=== PATIENT | male | born 1965 | race Caucasian/White ===

== ENCOUNTER 2017-11-25 08:20 | Inpatient (IN) | payer OTHER ==
[2017-10-28 11:38] VITALS: Ht 180.3 cm; Wt 138.1 kg
--- NOTE | 2017-10-28 12:23 | PAT Medication Instructions ---
Service Date Oct 28, 2017. Current Home Medication List Aspirin (Aspirin Ec), 81 MG PO QAM Atorvastatin (Lipitor), 40 MG PO HS Carvedilol (Coreg), 12.5 MG PO BID Citalopram Hydrobromide (Celexa), 20 MG PO QAM Diazepam (Valium), 5 MG PO BID PRN for RN Fenofibrate (Tricor), 48 MG PO HS Fish Oil ([place]-3), 2 CAP PO QAM Ibuprofen (Motrin), 600 MG PO PRN Multivitamins/Minerals (Mvi With Minerals), 1 TAB PO QAM Oxycodone Hcl (Oxycontin (Ext Rel)), 160 MG PO Q12 Psyllium (Metamucil), 1 DOSE PO QAM Ramipril (Ramipril), 1 CAP PO QAM Ranitidine (Zantac), 150 MG PO BID Medication Instructions For Your Scheduled Surgery -Contact your surgeon for instructions: Ibuprofen (Motrin), 600 MG PO PRN - Hold the following medications 2 weeks prior to surgery: Fish Oil ([place]-3), 2 CAP PO QAM - Hold the following medications the night before surgery: Fenofibrate (Tricor), 48 MG PO HS - Hold the following medications the morning of surgery: Multivitamins/Minerals (Mvi With Minerals), 1 TAB PO QAM Psyllium (Metamucil), 1 DOSE PO QAM Ramipril (Ramipril), 1 CAP PO QAM - Take the following medications the morning of surgery with a sip of water: Aspirin (Aspirin Ec), 81 MG PO QAM Carvedilol (Coreg), 12.5 MG PO BID Citalopram Hydrobromide (Celexa), 20 MG PO QAM Diazepam (Valium), 5 MG PO BID PRN for RN (if needed) Oxycodone Hcl (Oxycontin (Ext Rel)), 160 MG PO Q12 (if needed, can be taken up to four hours before surgery) Ranitidine (Zantac), 150 MG PO BID - Take the following medications as scheduled the night before surgery: Atorvastatin (Lipitor), 40 MG PO HS Carvedilol (Coreg), 12.5 MG PO BID Diazepam (Valium), 5 MG PO BID PRN for RN (if needed) Oxycodone Hcl (Oxycontin (Ext Rel)), 160 MG PO Q12 Ranitidine (Zantac), 150 MG PO BID If you have any questions please call us at [phone] or [phone] or [phone]
[2017-10-28 13:22] LABS: BASO % 0.6 %; BASO ABS # 0.03 K/uL (0-0.2); EOS % 4.5 %; EOS ABS # 0.24 K/uL (0-0.5); HEMATOCRIT 39.7 % (42-52); HEMOGLOBIN 13.9 g/dL (14.0-18.0); IG# 0.03 K/uL (0.00-0.02); LYMPH % 46.3 %; LYMPH ABS # 2.45 K/uL (1.2-3.4); MEAN CELL VOLUME 86.7 fL (80-100); MEAN CORPUSCULAR HEMOGLOBIN 30.3 pg (25-34); MEAN PLATELET VOLUME 9.2 fL (7.4-10.4); MONO % 8.3 %; MONO ABS # 0.44 K/uL (0.11-0.59); NEUT % 39.7 %; PLATELET COUNT 236 K/uL (130-400); RED CELL DISTRIBUTION WIDTH CV 12.6 % (11.5-14.5); RED CELL DISTRIBUTION WIDTH SD 40.3 fL (36.4-46.3); WHITE BLOOD COUNT 5.29 K/uL (4.8-10.8)
[2017-10-28 13:29] LABS: INR 0.9 (0.9-1.1); PTT PATIENT 24.7 SECONDS (21.0-31.0)
[2017-10-28 13:40] LABS: ALBUMIN 3.7 gm/dl (3.4-5.0); CALCIUM 9.1 mg/dl (8.5-10.1); CREATININE 1.03 mg/dl (0.60-1.40); POTASSIUM 4.6 mmol/L (3.5-5.1)
--- NOTE | 2017-11-12 11:17 | HISTORY & PHYSICAL EXAMINATION ---
DATE OF ADMISSION: 11/25/2017 CHIEF COMPLAINT: Right knee pain. HISTORY OF PRESENT ILLNESS: Mr. South is a 52-year-old male who sustained a right knee injury in 1980 playing football. The patient has had multiple surgeries on the knee over the years. He rates his pain as 6/10. He has pain with his daily activities. He has limited standing and walking tolerance. Pain is worse with weightbearing. The patient has had injections, bracing, physical therapy, and NSAIDS. He is also taking chronic narcotics with minimal relief. He has failed conservative treatment and is scheduled for right knee replacement. PAST MEDICAL HISTORY: VT age 34, asthma, chronic back pain. He denies diabetes or DVT. PAST SURGICAL HISTORY: Bilateral shoulder, left bicep, left total hip arthroplasty, hernia repair, and multiple right knee surgeries. SOCIAL HISTORY: The patient denies alcohol or tobacco use. He lives in a 2-andrew home. He lives alone. He is currently on disability. FAMILY HISTORY: Negative for DVT. MEDICATIONS: Aspirin 81 mg daily, atorvastatin 40 mg daily, Coreg 12.5 mg b.i.d., Celexa 20 mg daily, Valium 10 mg p.r.n., TriCor 48 mg daily, ibuprofen 600 mg q.i.d., multivitamin, omega 3, OxyContin 80 mg 2 tabs b.i.d., ramipril 10 mg daily, Zantac 150 mg b.i.d. ALLERGIES: DILAUDID CAUSES NAUSEA AND VOMITING. REVIEW OF SYSTEMS: See HPI. Ten other systems reviewed, all negative. PHYSICAL EXAMINATION: VITAL SIGNS: Height 5 foot 11 inches, weight 284 pounds, BMI 40. GENERAL: This is a well-developed, well-nourished male who is alert and oriented x3. Mood and affect are appropriate. HEENT: Normocephalic, atraumatic. Mucous membranes are moist and intact. NECK: Supple without lymphadenopathy. HEART: Regular rate and rhythm without murmurs, rubs, or gallops. LUNGS: Clear to auscultation without wheezes or rhonchi. ABDOMEN: Soft and nontender. Bowel sounds are equal and active. EXTREMITIES: No ecchymosis, redness, or warmth. He has multiple scars. He has moderate effusion, moderate distal edema. He has varus deformity. Range of motion is from 3-100 degrees with no laxity. He is neurovascularly intact with +5/5 strength. X-RAY EXAMINATION: AP and lateral views show joint space narrowing and osteophyte formation. IMPRESSION: Degenerative joint disease, posttraumatic right knee. PLAN: The patient will be admitted for a right TKA with removal of hardware. He is planning on a short stay at [facility] upon discharge since he lives alone. The patient is under narcotic contract with his PCP due to his high doses of chronic pain medication, pain management consult may be considered as an inpatient. The patient may also need to consider cardiac clearance preoperatively.
[~2017-11-25] VITALS: Ht 180.3 cm; Wt 138.1 kg
[2017-11-25] MEDS: TRANEXAMIC ACID INJ 1,000 MG x 2 Bags IV SCH ×4 (06:30→10:11)
[~2017-11-25 08:20] MED LIST: ACETAMINOPHEN 500 MG TAB PO SCH; ASPI81TA28 PO; ATOR-24 PO; BUPIVACAINE 0.5 % 5 MG/1 ML PF 10ML VIAL ONE; CARV12.52 PO; CEFAZOLIN 3000MG IV PUSH 22.5 ML IV SCH; CITA20TA9 PO; CeleBREX 200 MG CAP PO SCH; DEXAMETHASONE 4 MG TAB PO SCH; DIAZ-165 PO; FAMOTIDINE 20 MG TAB PO SCH; FENO48TA9 PO; GABAPENTIN 900 MG PO SCH; IBUP600T44 PO; LACTATED RINGER'S 1000ML 1,000 ML IV SCH; METOCLOPRAMIDE HCL 10 MG TAB PO SCH; MULT-513 PO; OMEG10007 PO; OXYC80TA16 PO; PSYL48.59 PO; RAMI10CA PO; RANI150T85 PO; ROPIVACAINE 5MG/ML 30 ML 150 MG, BUPIVACAINE 0.5% MPF INJ 30 ML, EpINEphrine HCL INJ 0.... INFIL SCH
[2017-11-25] MEDS ORDERED: FENTANYL CITRATE INJ 50 MCG/1 ML 2 ML VIAL IV PRN (08:30)
[2017-11-25] MEDS ORDERED: ONDANSETRON INJ 2 MG/ML 2 ML VIAL IV PRN ×3 (08:30→13:30)
[2017-11-25] MEDS ORDERED: ATROPINE SULFATE 0.1 MG/ML 5ML SYR IV PRN (08:30)
[2017-11-25] MEDS ORDERED: EpHEDrine SULFATE INJ 50 MG/ML AMP IV PRN ×2 (08:30→13:30)
--- NOTE | 2017-11-25 08:48 | History & Physical Bridge Note ---
H&P Re-Evaluation Bridge Note: I have examined the patient, reviewed the History & Physical and in the interval since the performance of the History & Physical I have noted the following changes of clinical significance: No changes noted
[2017-11-25] MEDS ORDERED: MOMLX (09:18)
[2017-11-25] MEDS ORDERED: FENTANYL CITRATE INJ 50 MCG/1 ML 2 ML VIAL ONE (09:28)
[2017-11-25] MEDS ORDERED: PROPOFOL IV EMULSION 10 MG/ML 20 ML VIAL IV ONE ×5 (09:28→12:42)
[2017-11-25] MEDS ORDERED: LIDOCAINE HCL 2% 2 ML VIAL (20MG/ML) ONE (09:28)
[2017-11-25] MEDS ORDERED: MIDAZOLAM HCL 1 MG/ML 2ML VIAL ONE (09:28)
[2017-11-25 09:29] VITALS: BP 130/70; PULSE 61; TEMP 37.1; O2SAT 94
[2017-11-25] MEDS ORDERED: ORTHO JOINT ANESTHETIC ONE (10:12)
[2017-11-25] MEDS ORDERED: POVIDONE-IODINE OP SOLN 30 ML BTL ONE (10:12)
[2017-11-25] MEDS ORDERED: BACITRACIN 50000 UNIT VIAL ONE (10:12)
[2017-11-25] MEDS ORDERED: ONDANSETRON INJ 2 MG/ML 2 ML VIAL ONE (11:04)
--- NOTE | 2017-11-25 12:19 | [facility] Post Operative Brief Note ---
Immediate Operative Summary Operative Date Nov 25, 2017. Pre-Operative Diagnosis Degenerative Joint Disease Right Knee; Retained Hardware Right Knee Post-Operative Diagnosis Degenerative Joint Disease Right Knee; Retained Hardware Right Knee Procedure(s) Performed Right Total Knee Arthroplasty Constrained with Removal of Hardware Right Knee Surgeon Dr. Juarez Firmware Software Verification Engineer Surgeon(s) VITALIY Gómez Estimated Blood Loss 10cc Findings Consistent with Post-Op Diagnosis Specimens A. Right Knee Bone and Tissue B. Removed Hardware Right Knee (plate x1, screws x5) Anesthesia Type MAC Spinal Regional Complication(s) none Disposition Accompanied Pt To Recover: no Disposition: Recovery Room / PACU
--- NOTE | 2017-11-25 13:23 | OPERATIVE REPORT ---
DATE OF OPERATION: 11/25/2017 PREOPERATIVE DIAGNOSIS: Degenerative joint disease, right knee, status post high tibial osteotomy. POSTOPERATIVE DIAGNOSIS: Degenerative joint disease, right knee, status post high tibial osteotomy. PROCEDURE: Removal of previous plate and screws and conversion to posterior stabilized total knee replacement. SURGEON: Jaime Juarez MD ASP NET PROGRAMMER: VITALIY Gómez ANESTHESIA: Spinal. COMPLICATIONS: None. DESCRIPTION OF PROCEDURE: Following induction of spinal anesthesia, the patient's right leg was prepped and draped in usual sterile manner. The limb was exsanguinated with an Esmarch bandage and tourniquet was inflated to 350 mmHg. Longitudinal incision was opened, subcutaneous tissue was sharply dissected and a trocar was used for hemostasis. A median parapatellar incision was made, and following this dissection, the subcutaneous layer was carried laterally to expose the area of the plate. Scar over the plate was opened using first a Bovie and then a Ashraf elevator, and the large fragment screwdriver was removed all screws. The plate was dislodged with a Ashraf elevator and was removed easily. Next, attention was turned to the knee replacement where fat pad was removed to aid in exposure. The medial face of the tibia was cleared of soft tissue using electrocautery and Ashraf elevator. The significant offset of the medial tibial was noted from the previous high tibial osteotomy. First, the cut was made taking minimum of bone that could be obtained medially, but removing all degenerative arthritis. Following this, attention was turned to the femur where the drill was used to gain access to the femoral canal. Intramedullary guide was placed and the distal femur was cut using the distal femoral cutting guide. A size 6 femoral component was chosen the size to be used, and the guide for the chamfer cuts and anterior and posterior cuts were made. The notch was prepared and all remaining soft tissue was removed from the posterior aspect of the knee using electrocautery. The tibia was then subluxed anteriorly where additional clean up cuts were made using the saw and these bone fragments were all removed. Intramedullary access was gained using the drill over the tibial canal. This was clearly offset quite a bit laterally on the face of the tibia due to the previous high tibial osteotomy. Sequential reamings were carried up to a size 13, it was chosen as the size to be used. A size 6 baseplate was placed with a lateral offset noted. The preparations for the tibial stem were made and the trial tibia was built. A trial reduction was carried out using the trial components with an 11 poly. Following this, the patella was reamed and a size 39 patella was chosen as the size to use, this tracked well. Excess bone medial to the tibial base plate was removed using a rongeur. This did not destabilize the medial collateral ligament. All trial components were removed. The joint mix was injected. The pulsatile irrigation was used to thoroughly cleanse the knee. The final components were prepared on the back table and the final components were cemented into position. Excess cement was removed. The wound was irrigated, soaked with the Betadine soak and closed over a Hemovac drain. The wound was irrigated once again and closed using #1 Vicryl, 0 Dexon and sandra. Sterile dressing of Adaptic, 4 x 4's, ABDs, sterile Webril and double length Ian was applied. The patient tolerated the procedure well. I attest to the content of the Intraoperative Record and any orders documented therein. Any exception s are noted below.
[2017-11-25] MEDS ORDERED: SODIUM CHLORIDE 0.9% 1000ML 1,000 ML IV PRN (13:28)
[2017-11-25] MEDS ORDERED: LACTATED RINGER'S 1000ML 500 ML IV PRN (13:28)
[2017-11-25] MEDS ORDERED: FENTANYL 2.5MCG/ML BUPIV 0.0625% 100ML BAG EPI PRN (13:30)
[2017-11-25] MEDS ORDERED: NALOXONE HCL INJ 0.4 MG/1 ML VIAL/CARP IV PRN (13:30)
[2017-11-25] MEDS ORDERED: MEPERIDINE HCL 25 MG/ML CARP IV PRN (13:30)
[2017-11-25] MEDS ORDERED: BISACODYL 10 MG SUPP PR PRN (13:30)
[2017-11-25] MEDS ORDERED: MAGNESIUM HYDROXIDE SUSP 30 ML UDC PO PRN (13:30)
[2017-11-25] MEDS ORDERED: ALUMINUM/MAGNESIUM/SIMETH (MAALOX MAX) 30 ML UDC PO PRN (13:30)
[2017-11-25] MEDS ORDERED: MoRPHine SULFATE 2 MG/ML CARP IV PRN (13:30)
[2017-11-25] MEDS ORDERED: DiphenhydrAMINE HCL 50 MG/ML VIAL IV PRN (13:30)
[2017-11-25] MEDS ORDERED: NALBUPHINE HCL INJ 10 MG/ML AMP IV PRN (13:30)
--- NOTE | 2017-11-25 13:38 | Anesthesiology Progress Note ---
Anesthesia Post Op Note Date & Time Nov 25, 2017 at 13:36 Vital Signs Pain Intensity: 0 Vital Signs Past 12 Hours Date Time Temp Pulse Resp B/P (MAP) Pulse Ox O2 Delivery O2 Flow Rate FiO2 11/25/17 09:29 37.1 61 18 130/70 94 Room Air Notes Mental Status: alert / awake / arousable, participated in evaluation Pt Amnestic to Procedure: Yes Nausea / Vomiting: adequately controlled Pain: adequately controlled Airway Patency, RR, SpO2: stable & adequate BP & HR: stable & adequate Hydration State: stable & adequate Neuraxial Anesthesia: was administered, sensory block is resolving Anesthetic Complications: no major complications apparent Pt was administered a test dose of lidocaine 1.5% with epi 1:200K, 3mL to his epidural. The patient denied perioral numbness, tinnitus, or spinal block after administration. I told the PACU nurse that the patient could start his epidural infusion. The pt's vital signs remained stable. The patient was stable for discharge to telemetry.
--- NOTE | 2017-11-25 14:18 | DIAGNOSTIC IMAGING REPORT ---
R KNEE 2 VIEWS ROUTINE CLINICAL HISTORY: Total knee arthroplasty. Hardware. COMPARISON: None. DISCUSSION: 2 views reveal a total right knee arthroplasty and patellar resurfacing. There is a long stem tibial prosthesis. There are overlying skin sandra and surgical drains present. There is an overlying plaster cast. IMPRESSION: Casted total right knee arthroplasty. Electronically signed by: Bony Nagy M.D. 11/25/2017 2:17 PM Dictated Date/Time: 11/25/2017 2:16 PM
[2017-11-25 14:54] VITALS: BP 127/59; PULSE 53; TEMP 37; O2SAT 99
--- NOTE | 2017-11-25 15:08 | Medical Consult ---
Consultation Date of Consultation: Nov 25, 2017. Attending Physician: Jaime Juarez M.D. Reason for Consultation: Medical management History of Present Illness This is a 52 yo M with PMHx of HTN, HLD, hypertriglyceridemia, GERD, myocardial infarction at age 34, remote smoking hisotry chronic lower back pain and obesity who presents for an elective R total knee replacement by Dr Juarez on . The patient notes he has had 5 different knee surgeries on the same knee. Pt was seen and evaluated in the PACU. Pt reports no pain in the knee and that he is slightly numb in his toes. He is able to move toes, ankle and foot during exam. He denies any other acute complaints. Pt is from home and lives with his 80 yo mother. He anticipates outpatient rehab upon discharge. Past Medical/Surgical History Medical Problems: (1) Chronic low back pain (2) GERD (gastroesophageal reflux disease) (3) HLD (hyperlipidemia) (4) HTN (hypertension) (5) Hx of myocardial infarction (6) Hypertriglyceridemia (7) Right knee DJD Surgical Problems: (1) History of hernia repair (2) History of left knee surgery (3) History of total left hip arthroplasty (4) Hx of repair of left rotator cuff (5) Hx of shoulder surgery Family History FH: HTN (hypertension) FH: breast cancer FH: diabetes mellitus FH: heart disease FH: lung cancer Medical Problems: (1) Chronic low back pain (2) GERD (gastroesophageal reflux disease) (3) HLD (hyperlipidemia) (4) HTN (hypertension) (5) Hx of myocardial infarction (6) Hypertriglyceridemia (7) Right knee DJD Surgical Problems: (1) History of hernia repair (2) History of left knee surgery (3) History of total left hip arthroplasty (4) Hx of repair of left rotator cuff (5) Hx of shoulder surgery Social History Smoking Status: Former Smoker Alcohol Use: none Drug Use: none Marital Status: single Housing Status: lives with family Allergies Coded Allergies: No Known Allergies (Verified , NKDA, 11/25/17) Current Inpatient Medications Current Inpatient Medications Medications (Trade) Dose Ordered Sig/[place] Route Start Time Stop Time Status Last Admin Dose Admin Lactated Ringer's 1,000 ml @ 15 mls/hr Q24H IV 11/25/17 06:00 11/26/17 05:59 11/25/17 09:51 15 MLS/HR Fentanyl/ Bupivacaine HCl (Fentanyl 2.5MCG/ Ml/Bupivacaine 0.0625%) 100 ml PRN PRN EPI 11/25/17 13:30 12/09/17 13:29 Naloxone HCl (Narcan Inj) 0.1 mg Q5M PRN IV 11/25/17 13:30 12/25/17 13:29 Lactated Ringer's 500 ml @ 999 mls/hr Q31M PRN IV 11/25/17 13:28 12/25/17 13:27 Ephedrine Sulfate (EpHEDrine SULFATE INJ) 10 mg Q5M PRN IV 11/25/17 13:30 Diphenhydramine HCl (Benadryl Inj) 25 mg Q6H PRN IV 11/25/17 13:30 12/25/17 13:29 Nalbuphine HCl (Nubain Inj) 5 mg Q15M PRN IV 11/25/17 13:30 12/25/17 13:29 Ondansetron HCl (Zofran Inj) 4 mg Q6H PRN IV 11/25/17 13:30 12/25/17 13:29 Meperidine HCl (Demerol Inj) 25 mg Q15M PRN IV 11/25/17 13:30 12/09/17 13:29 Miscellaneous Information (No Narcotics Or Sedatives) 1 ea QS N/A 11/25/17 16:00 12/25/17 15:59 Morphine Sulfate (MoRPHine SULFATE INJ) 2 mg Q2H PRN IV 11/25/17 13:30 12/09/17 13:29 Sodium Chloride 1,000 ml @ 15 mls/hr Q24H PRN IV 11/25/17 13:28 12/25/17 13:27 Atorvastatin Calcium (Lipitor Tab) 40 mg HS PO 11/25/17 21:00 12/25/17 20:59 UNV Carvedilol (Coreg Tab) 12.5 mg BID PO 11/25/17 21:00 12/25/17 20:59 UNV Citalopram Hydrobromide (celeXA TAB) 20 mg QAM PO 11/26/17 09:00 12/26/17 08:59 UNV Ranitidine HCl (zANTac TAB) 150 mg BID PO 11/25/17 21:00 12/25/17 20:59 UNV Non-Formulary Medication (Ramipril ) 1 cap QAM PO 11/26/17 09:00 12/26/17 08:59 UNV Morphine Sulfate (MoRPHine SULFATE INJ) PAIN SCALE 0-3 2MG ... Q4HWA PRN IV 11/25/17 13:30 12/09/17 13:29 UNV Potassium Chloride/Dextrose/ Sod Cl 1,000 ml @ 100 mls/hr Q10H IV 11/25/17 13:23 11/26/17 13:22 UNV Cefazolin Sodium 2000 mg/Dextrose 65 ml @ 100 mls/hr Q8H IV 11/25/17 13:30 11/25/17 22:08 UNV Celecoxib (CeleBREX CAP) 200 mg BID PO 11/25/17 21:00 12/25/17 20:59 UNV Oxycodone HCl (Oxycontin Tab) 120 mg Q12 PO 11/25/17 21:00 12/09/17 20:59 UNV Acetaminophen (Tylenol Tab) 1,000 mg Q8H PO 11/25/17 13:30 12/25/17 13:29 UNV Magnesium Hydroxide (Milk Of Magnesia Susp) 30 ml Q6H PRN PO 11/25/17 13:30 12/25/17 13:29 Bisacodyl (Dulcolax Supp) 10 mg DAILY PRN [place] 11/25/17 13:30 12/25/17 13:29 Senna (Senokot Tab) 17.2 mg HS PO 11/25/17 21:00 12/25/17 20:59 UNV Docusate Sodium (coLACE CAP) 100 mg BID PO 11/25/17 21:00 12/25/17 20:59 UNV Al Hydrox/Mg Hydrox/Simethicone (Maalox Max Susp) 15 ml Q4H PRN PO 11/25/17 13:30 12/25/17 13:29 Multivitamins (Multivitamin Tab) 1 tab QAM PO 11/26/17 09:00 12/26/17 08:59 UNV Ondansetron HCl (Zofran Inj) 4 mg Q6H PRN IV 11/25/17 13:30 12/25/17 13:29 Ferrous Gluconate (Ferrous Gluconate Tab) 324 mg TIDM PO 11/25/17 18:00 12/25/17 17:59 UNV Aspirin (Ecotrin Tab) 81 mg BID PO 11/25/17 21:00 12/25/17 20:59 UNV Review of Systems Constitutional: No fever, sweats or chills Eyes: No diplopia, no worsening or blurred vision ENT: normal hearing, no trouble swallowing Respiratory: No cough, sputum, dyspnea at rest or on exertion Cardiovascular: No chest pain, tightness or palpitations Abdomen: No pain, nausea, vomiting, diarrhea or constipation Musculoskeletal: No joint pain, calf pain, swelling Neurologic: No weakness, numbness/tingling, or balance problems Psychiatric: No anxiety or depression Skin: No rash or itch Physical Exam Date Time Temp Pulse Resp B/P (MAP) Pulse Ox O2 Delivery O2 Flow Rate FiO2 11/25/17 14:15 36.0 52 16 105/67 98 Nasal Cannula 3 11/25/17 14:00 57 16 123/68 98 Nasal Cannula 3 11/25/17 13:50 53 13 107/75 98 Nasal Cannula 3 11/25/17 13:40 54 14 118/67 99 Nasal Cannula 3 11/25/17 13:30 51 14 113/71 99 Oxymask 3 11/25/17 13:23 36.0 52 14 130/79 98 Oxymask 5 11/25/17 09:29 37.1 61 18 130/70 94 Room Air General: awake, alert, no apparent distress Head: Normocephalic, atraumatic ENT: PERRL, EOMI, no pharyngeal exudate, mucous membranes moist Chest: Clear to auscultation, on room air, no adventitious breath sounds Cardiac: Regular rate and rhythm, no murmur, no JVD, normal peripheral pulses, good capillary refill Abdominal: NABS x 4 quadrants, soft, nontender to palpation, no rebound, guarding or tenderness Extremities: RLE wrapped in ADIS, hemovac drain in place, ice pack, Normal inspection, no peripheral edema or erythema, calfs nontender to palpation Psych: Normal mood and affect Neuro: AAO x 3, strength diminished in the RLE currently, decreased sensation to light touch distally in RLE. Otherwise no motor deficits, speech is clear, no peripheral sensory deficits Assessment & Plan This is a 52 yo M with PMHx of HTN, HLD, hypertriglyceridemia, GERD, myocardial infarction at age 34, remote smoking history chronic lower back pain and obesity who presents for an elective R total knee replacement by Dr Juarez on . The patient notes he has had 5 different knee surgeries on the same knee. s/p R TKA - Pain management, bowel regimen and DVT ppx with asa 81 mg BID per primary team - PT/OT evals HTN HLD Hypertriglyceridemia Hx ND Remote tobacco use hx - Continue coreg 12.5 mg bid, vasotec 40 mg, statin, tricor Chronic lower back pain - Oxy ER 120 mg Q12 as outpatient, and valium 5 mg BID prn (usually taken at night before sleep only) GERD - ppi Pre-diabetes - Hgb A1C = 6.0, will need to encourage diet and exercise prior to discharge, follow glucose while admitted DVT ppx: teds, scds, asa 81 mg BID as above CODE STATUS: FULL code Disposition: From home, lives with mother, CM to assist with dc planning. Thank you for involving us in the consultation of Mr. South, medicine will follow along. Please do not hesitate to call with questions or concerns. ====== I personally interviewed and examined the patient. I agree with history of present illness and physical exam mentioned above, I also performed my own history taking and examination. Past medical history and review of system has been obtained by myself I reviewed all pertinent labs and studies Reviewed current medications I discussed and formulated of the assessment and plan mentioned above. Please refer to the Summary mentioned below. 52-year-old man with past medical history of dyslipidemia, hypertension, GERD, coronary artery disease status post ND 20 years ago, obesity and osteoarthritis presented to the hospital for elective right total knee arthroplasty, procedure went uneventful, patient will be monitored overnight for any event. General Appearance: not in acute distress Eyes: normal Sclerae, extraocular muscle intact ENT: hearing grossly normal Neck: supple Respiratory/Chest: normal air entry bilateral ,no respiratory distress, no accessory muscle use Cardiovascular: regular rate, rhythm, no murmur Abdomen: non tender, soft, no masses Extremities: no edema musculoskeletal: no significant swelling or inflammation in any joint, right knee is wrapped patient is wiggling his toes sensation intact on his right knee. Neurologic/Psychiatric: Awake alert oriented times place and person moves all extremities sensation intact cranial nerves II-12 appear to be intact Skin: normal color, warm/dry, no rash Autumn Higgins MD, [facility]
[2017-11-25] MEDS: D5W AND 1/2NSS + 20MEQ KCL 1,000 ML IV SCH (15:49)
[2017-11-25] MEDS: NO NARCOTICS OR SEDATIVES SCH (16:00)
[2017-11-25 17:05] VITALS: BP 129/69; PULSE 71; TEMP 37.3; O2SAT 94
[2017-11-25] MEDS: CEFAZOLIN IV 2,000 MG in SYRINGE 0 ML IV SCH (18:53)
[2017-11-25] MEDS: FERROUS GLUCONATE 324 MG TAB PO SCH (18:54)
[2017-11-25 19:10] VITALS: BP 121/70; PULSE 64; TEMP 36.8; O2SAT 92
[2017-11-25] MEDS ORDERED: OXYCODONE HCL 40 MG TABCR (OXYCONTIN) PO SCH (21:00)
[2017-11-25] MEDS: OXYCODONE HCL 40 MG TABCR (OXYCONTIN) PO SCH (21:39)
[2017-11-25] MEDS: CeleBREX 200 MG CAP PO SCH (21:40)
[2017-11-25] MEDS: DOCUSATE SODIUM 100 MG CAP PO SCH (21:41)
[2017-11-25] MEDS: CARVEDILOL 12.5 MG TAB PO SCH (21:41)
[2017-11-25] MEDS: ATORVASTATIN 20 MG TAB PO SCH (21:41)
[2017-11-25] MEDS: ASPIRIN 81 MG ECTAB PO SCH (21:41)
[2017-11-25] MEDS: RANITIDINE HCL 150 MG TAB PO SCH (21:42)
[2017-11-25] MEDS: SENNA 8.6 MG TAB PO SCH (21:42)
[2017-11-25] MEDS: ACETAMINOPHEN 500 MG TAB PO SCH (21:43)
[2017-11-25 23:30] VITALS: BP 117/67; PULSE 67; TEMP 37.3; O2SAT 94
[2017-11-26] MEDS: D5W AND 1/2NSS + 20MEQ KCL 1,000 ML IV SCH ×2 (00:54→11:30)
[2017-11-26] MEDS: RANITIDINE HCL 150 MG TAB PO SCH ×2 (00:56→19:52)
[2017-11-26 04:00] VITALS: BP 136/64; PULSE 58; TEMP 37; O2SAT 94
[2017-11-26] MEDS: CEFAZOLIN IV 2,000 MG in SYRINGE 0 ML IV SCH (04:05)
[2017-11-26] MEDS: ACETAMINOPHEN 500 MG TAB PO SCH ×3 (06:13→22:17)
[2017-11-26 07:00] LABS: HEMATOCRIT 31.7 % (42-52); HEMOGLOBIN 10.8 g/dL (14.0-18.0); MEAN CELL VOLUME 86.8 fL (80-100); MEAN CORPUSCULAR HEMOGLOBIN 29.6 pg (25-34); MEAN CORPUSCULAR HGB CONC 34.1 g/dl (32-36); MEAN PLATELET VOLUME 9.2 fL (7.4-10.4); PLATELET COUNT 210 K/uL (130-400); RED CELL DISTRIBUTION WIDTH CV 13.1 % (11.5-14.5); RED CELL DISTRIBUTION WIDTH SD 42.3 fL (36.4-46.3); WHITE BLOOD COUNT 14.46 K/uL (4.8-10.8)
[2017-11-26 07:23] LABS: CALCIUM 8.2 mg/dl (8.5-10.1); CREATININE 0.99 mg/dl (0.60-1.40); POTASSIUM 4.5 mmol/L (3.5-5.1)
--- NOTE | 2017-11-26 07:27 | Anesthesiology Progress Note ---
Anesthesia Post Op Note Date & Time Nov 26, 2017 at 07:26 Vital Signs Pain Intensity: 6.0 Vital Signs Past 12 Hours Date Time Temp Pulse Resp B/P (MAP) Pulse Ox O2 Delivery O2 Flow Rate FiO2 11/26/17 04:00 Room Air 11/26/17 04:00 37.0 58 20 136/64 (88) 94 Room Air 11/26/17 00:00 Room Air 11/25/17 23:30 37.3 67 22 117/67 (84) 94 Room Air 11/25/17 20:00 Room Air Notes Mental Status: alert / awake / arousable, participated in evaluation Pt Amnestic to Procedure: Yes Nausea / Vomiting: adequately controlled Pain: adequately controlled Airway Patency, RR, SpO2: stable & adequate BP & HR: stable & adequate Hydration State: stable & adequate Neuraxial Anesthesia: was administered, sensory block resolved Anesthetic Complications: no major complications apparent
[2017-11-26 07:50] VITALS: BP 125/72; PULSE 50; TEMP 36.8; O2SAT 93
--- NOTE | 2017-11-26 07:57 | Orthopedic Progress Note ---
Orthopedic Progress Note Date of Service Nov 26, 2017. Subjective Post OP Day: 1 Reports: feeling well Objective N/V intact, dressing C/D/I (Pt with plaster splint in place), toes mobile Date Time Temp Pulse Resp B/P (MAP) Pulse Ox O2 Delivery O2 Flow Rate FiO2 11/26/17 04:00 Room Air 11/26/17 04:00 37.0 58 20 136/64 (88) 94 Room Air 11/26/17 00:00 Room Air 11/25/17 23:30 37.3 67 22 117/67 (84) 94 Room Air 11/25/17 20:00 Room Air 11/25/17 19:10 36.8 64 18 121/70 (87) 92 Room Air 11/25/17 17:05 37.3 71 18 129/69 (89) 94 Room Air 11/25/17 14:54 37.0 53 20 127/59 (81) 99 Room Air 2.0 11/25/17 14:15 36.0 52 16 105/67 98 Nasal Cannula 3 11/25/17 14:00 57 16 123/68 98 Nasal Cannula 3 11/25/17 13:50 53 13 107/75 98 Nasal Cannula 3 11/25/17 13:40 54 14 118/67 99 Nasal Cannula 3 11/25/17 13:30 51 14 113/71 99 Oxymask 3 11/25/17 13:23 36.0 52 14 130/79 98 Oxymask 5 11/25/17 09:29 37.1 61 18 130/70 94 Room Air Laboratory Results 24 Hours: Test 11/26/17 06:33 Hematocrit 31.7 % Hemoglobin 10.8 g/dL Assessment & Plan Assessment: 52 yo male stable POD #1 s/p right TKA, splint in place/no ROM of knee due to difficult closure, pt with chronic pain issues Plan: 1. Med management- likely continue epidural until tomorrow, transfer to ortho floor when stable 2. DVT prophylaxis- ASA, SCDs 3. PT/OT- gait training, no knee ROM at this time 4. D/C planning- pt interested in [facility]
[2017-11-26] MEDS: NO NARCOTICS OR SEDATIVES SCH ×3 (08:37→16:16)
[2017-11-26] MEDS: FERROUS GLUCONATE 324 MG TAB PO SCH ×3 (08:37→17:05)
[2017-11-26] MEDS: CeleBREX 200 MG CAP PO SCH ×2 (08:38→19:54)
[2017-11-26] MEDS: ASPIRIN 81 MG ECTAB PO SCH ×2 (08:38→19:54)
[2017-11-26] MEDS: DOCUSATE SODIUM 100 MG CAP PO SCH ×2 (08:38→19:53)
[2017-11-26] MEDS: CITALOPRAM 20 MG TAB PO SCH (08:38)
[2017-11-26] MEDS: CARVEDILOL 12.5 MG TAB PO SCH ×2 (08:38→19:55)
[2017-11-26] MEDS: MULTIVITAMIN TAB PO SCH (08:39)
[2017-11-26] MEDS: OXYCODONE HCL 40 MG TABCR (OXYCONTIN) PO SCH ×2 (08:45→22:17)
[2017-11-26] MEDS: ENALAPRIL MALEATE 10 MG TAB PO SCH (08:45)
--- NOTE | 2017-11-26 09:43 | Pain Management Consultation ---
Pain Management Consultation Date of Consultation Nov 26, 2017. Reason for Consultation Stanislaw South is a 52-year-old male who is admitted to [facility] after undergoing right total knee arthroplasty yesterday for severe degenerative joint disease and chronic posttraumatic knee pain. Consultation was requested for pain management as he has a long-standing history of chronic opioid use. Pain is currently located in anterior and superior aspect of his right knee arthroplasty site and does not radiate. Symptoms are characterized as throbbing sensation which sharp shooting pain with adduction of the knee. Symptoms have been present for since after the surgery. Symptoms are rated as 4/10 on visual analog scale when severe and 1/10 when minimal. Current treatments for acute postop pain management include epidural bupivacaine /fentanyl infusion and OxyContin 120 mg twice daily. As an outpatient, he was on OxyContin 180 mg p.o. twice daily as well diazepam 5 mg twice daily for anxiety. He has been on chronic opiate therapy since 1980 when he sustained a traumatic brain injury and underwent multiple surgical interventions. Reports being on OxyContin at current dose for approximately 2 years duration. He does report undergoing withdrawal symptoms when he "ran out" of his medications in the past. He has comorbid medical conditions including sleep apnea and a BMI of 41.2 kg/m . He also reports having history of anxiety and depression. Denies use of alcohol, DUI, any legal issues, any financial stressors but does report significant social stressors with regards to providing care for his family members with disabilities. He reports that he is under "a lot of stress" lately as result. He also reports chronic low back pain as well as "pain all over" and suggest that despite his knee surgery, he will still need to continue on "some dose" of the opioid postoperatively. Reports no neurological symptoms associated with the symptoms. Past Medical/Surgical History (1) HTN (hypertension) (2) HLD (hyperlipidemia) (3) Hypertriglyceridemia (4) GERD (gastroesophageal reflux disease) (5) Hx of myocardial infarction (6) History of total left hip arthroplasty (7) Hx of repair of left rotator cuff (8) Hx of shoulder surgery (9) History of left knee surgery (10) History of hernia repair Family History FH: HTN (hypertension) FH: breast cancer FH: diabetes mellitus FH: heart disease FH: lung cancer Social / Work History Alcohol Use: none Drug Use: none Marital Status: single Allergies Coded Allergies: No Known Allergies (Verified , NKDA, 11/25/17) Medications Current Inpatient Medications Medications (Trade) Dose Ordered Sig/[place] Route Start Time Stop Time Status Last Admin Dose Admin Fentanyl/ Bupivacaine HCl (Fentanyl 2.5MCG/ Ml/Bupivacaine 0.0625%) 100 ml PRN PRN EPI 11/25/17 13:30 12/09/17 13:29 11/26/17 03:07 100 ML Naloxone HCl (Narcan Inj) 0.1 mg Q5M PRN IV 11/25/17 13:30 12/25/17 13:29 Lactated Ringer's 500 ml @ 999 mls/hr Q31M PRN IV 11/25/17 13:28 12/25/17 13:27 Ephedrine Sulfate (EpHEDrine SULFATE INJ) 10 mg Q5M PRN IV 11/25/17 13:30 Diphenhydramine HCl (Benadryl Inj) 25 mg Q6H PRN IV 11/25/17 13:30 12/25/17 13:29 Nalbuphine HCl (Nubain Inj) 5 mg Q15M PRN IV 11/25/17 13:30 12/25/17 13:29 Ondansetron HCl (Zofran Inj) 4 mg Q6H PRN IV 11/25/17 13:30 12/25/17 13:29 11/25/17 22:40 4 MG Meperidine HCl (Demerol Inj) 25 mg Q15M PRN IV 11/25/17 13:30 12/09/17 13:29 Miscellaneous Information (No Narcotics Or Sedatives) 1 ea QS N/A 11/25/17 16:00 12/25/17 15:59 11/26/17 00:00 1 EA Morphine Sulfate (MoRPHine SULFATE INJ) 2 mg Q2H PRN IV 11/25/17 13:30 12/09/17 13:29 Sodium Chloride 1,000 ml @ 15 mls/hr Q24H PRN IV 11/25/17 13:28 12/25/17 13:27 Atorvastatin Calcium (Lipitor Tab) 40 mg HS PO 11/25/17 21:00 12/25/17 20:59 11/25/17 21:41 40 MG Carvedilol (Coreg Tab) 12.5 mg BID PO 11/25/17 21:00 12/25/17 20:59 11/25/17 21:41 12.5 MG Citalopram Hydrobromide (celeXA TAB) 20 mg QAM PO 11/26/17 09:00 12/26/17 08:59 Ranitidine HCl (zANTac TAB) 150 mg BID PO 11/25/17 21:00 12/25/17 20:59 11/26/17 00:56 150 MG Enalapril Maleate (Vasotec Tab) 40 mg QAM PO 11/26/17 09:00 12/26/17 08:59 Morphine Sulfate (MoRPHine SULFATE INJ) PAIN SCALE 0-3 2MG ... Q4HWA PRN IV 11/25/17 13:30 12/09/17 13:29 Future Hold Potassium Chloride/Dextrose/ Sod Cl 1,000 ml @ 100 mls/hr Q10H IV 11/25/17 15:00 11/26/17 14:59 11/26/17 00:54 100 MLS/HR Celecoxib (CeleBREX CAP) 200 mg BID PO 11/25/17 21:00 12/25/17 20:59 11/25/17 21:40 200 MG Oxycodone HCl (Oxycontin Tab) 120 mg Q12 PO 11/25/17 21:00 12/09/17 20:59 11/25/17 21:39 120 MG Acetaminophen (Tylenol Tab) 1,000 mg Q8H PO 11/25/17 22:00 12/25/17 21:59 11/26/17 06:13 1,000 MG Magnesium Hydroxide (Milk Of Magnesia Susp) 30 ml Q6H PRN PO 11/25/17 13:30 12/25/17 13:29 Bisacodyl (Dulcolax Supp) 10 mg DAILY PRN SC 11/25/17 13:30 12/25/17 13:29 Senna (Senokot Tab) 17.2 mg HS PO 11/25/17 21:00 12/25/17 20:59 11/25/17 21:42 17.2 MG Docusate Sodium (coLACE CAP) 100 mg BID PO 11/25/17 21:00 12/25/17 20:59 11/25/17 21:41 100 MG Al Hydrox/Mg Hydrox/Simethicone (Maalox Max Susp) 15 ml Q4H PRN PO 11/25/17 13:30 12/25/17 13:29 Multivitamins (Multivitamin Tab) 1 tab QAM PO 11/26/17 09:00 12/26/17 08:59 Ondansetron HCl (Zofran Inj) 4 mg Q6H PRN IV 11/25/17 13:30 12/25/17 13:29 Ferrous Gluconate (Ferrous Gluconate Tab) 324 mg TIDM PO 11/25/17 16:45 12/25/17 17:59 11/25/17 18:54 324 MG Aspirin (Ecotrin Tab) 81 mg BID PO 11/25/17 21:00 12/25/17 20:59 11/25/17 21:41 81 MG Physical Exam Height & Weight: Height 5 feet, 11 inches. Weight 133.800 (Kilograms) 294 (Pounds) Last Vital Signs Documentation Date Time Temp Pulse Resp B/P (MAP) Pulse Ox O2 Delivery O2 Flow Rate FiO2 11/26/17 04:00 Room Air 11/26/17 04:00 37.0 58 20 136/64 (88) 94 11/25/17 14:54 2.0 Exam: Exam demonstrates Mr. South to be awake and alert. He appears stated age of 52. He is laying supine position and appear to be pain-free and comfortable at the present time. He appears generally deconditioned. Right knee is in a splint with a dressing on. Palpation over the surgical site produces moderate pain. Inspection his lumbar spine demonstrates healed surgical scar with loss of lumbar lordosis. The diffuse myofascial pain and lumbar spine or spinous regions. Full exam could not be conducted because patient is in the right knee splint and has an epidural catheter in place. Laboratory Laboratory Results (Last CBC): 11/26/17 06:33 [place] Drug Monitoring Program Search Results: patient reviewed within database Drug Monitoring Findings: Patient has been consistently receiving diazepam 5 mg and OxyContin 180 mg from consistent providers and consistent pharmacies. Opioid Risk Assessment moderate risk identified Assessment 1. Opiate dependence. Opiate tolerant with chronic opiate use. 2. Benzodiazepine dependence. 3. Multiple medical comorbid conditions and psychosocial stressors to predispose patient for continuing opiate dependence. 4. Status post total knee arthroplasty right knee with acute postop pain Recommendations 1. Recommend increasing the rate of epidural infusion. 2. Recommend continuing patient's diazepam at a lower dose (2 mg) to prevent benzodiazepine withdrawals. 3. Recommend continue oxycodone 120 mg twice daily as scheduled (reduced from outpatient dose) to prevent opiate withdrawals and to minimize possibility of respiratory depression from combination of oral and neuraxial opioids. 4. Once the epidural catheter is removed, recommend patient continue on his typical outpatient dose of the as he was previously prior to the admission. 5. Recommend co-prescribing naloxone when discharged as patient is on more than 90 morphine equivalents daily dose, as recommended by latest CDC guidelines. 6. Recommend gradually weaning the patient off to a minimum dose of opioid (50 morphine equivalents per day) by reduction of 20-25% weekly. 7. Recommend gradual weaning and discontinuing diazepam as patient is high risk of adverse respiratory events with combination of opiates, benzodiazepines and sleep apnea. 8. If patient does require potent opioids for management of his back pain as well as other pain complaints and symptoms, recommend referral to pain management clinic for consideration of intrathecal drug delivery system trial.
--- NOTE | 2017-11-26 10:48 | Hospitalist Progress Note ---
Hospitalist Progress Note Date of Service Nov 26, 2017. Subjective Pt evaluation today including: conversation w/ patient, physical exam, chart review, lab review, review of inpatient medication list PO Intake: Tolerating PO diet Voiding: no voiding problems Patient reports feeling well. He does report soreness in his right knee. He did ambulate the hallway briefly with physical therapy but stopped due to pain and dizziness. The dizziness then resolved after rest. He complains of lower extremity numbness. He is currently on fentanyl/bupivacaine epidural infusion. He is eating well, urinating, and passing gas postoperatively. He has not yet had a bowel movement. He does report having some abdominal pain and nausea last night with very minimal emesis, but this is now resolved. The patient denies fevers, chills, sweats, chest pain, palpitations, claudication, cough, wheezing, shortness of breath, nausea, vomiting, abdominal pain, dysuria, hematuria, urinary retention, paralysis, weakness. Additional Comments: See HPI for pertinent positives and negatives. All other systems reviewed and negative. Objective Vital Signs Date Time Temp Pulse Resp B/P (MAP) Pulse Ox O2 Delivery O2 Flow Rate FiO2 11/26/17 07:50 36.8 50 20 125/72 (89) 93 Room Air 11/26/17 04:00 Room Air 11/26/17 04:00 37.0 58 20 136/64 (88) 94 Room Air 11/26/17 00:00 Room Air 11/25/17 23:30 37.3 67 22 117/67 (84) 94 Room Air 11/25/17 20:00 Room Air 11/25/17 19:10 36.8 64 18 121/70 (87) 92 Room Air 11/25/17 17:05 37.3 71 18 129/69 (89) 94 Room Air 11/25/17 14:54 37.0 53 20 127/59 (81) 99 Room Air 2.0 11/25/17 14:15 36.0 52 16 105/67 98 Nasal Cannula 3 11/25/17 14:00 57 16 123/68 98 Nasal Cannula 3 11/25/17 13:50 53 13 107/75 98 Nasal Cannula 3 11/25/17 13:40 54 14 118/67 99 Nasal Cannula 3 11/25/17 13:30 51 14 113/71 99 Oxymask 3 11/25/17 13:23 36.0 52 14 130/79 98 Oxymask 5 Physical Exam Notes: General appearance: +Morbidly obese. Well-developed, well-nourished, no apparent distress Head: Normocephalic, atraumatic Eyes: Normal inspection, PERRL, EOMI ENT: Normal ENT inspection, hearing grossly normal, pharynx normal Neck: Supple, no JVD, trachea midline Respiratory/Chest: Lungs clear to auscultation, normal breath sounds, no respiratory distress Cardiovascular: +Systolic murmur. Regular rate & rhythm, no gallop Abdomen/GI: +LLQ TTP. Normal bowel sounds, soft Extremities/Musculoskeletal: +RLE splinted, wrapped in jarrett bandage. Hemovac in place. No calf tenderness, no pedal edema Neurological/Psych: +Decreased sensation in lower extremities bilaterally. Alert, normal mood/affect, oriented x 3 Skin: Normal color, warm/dry, no rash Laboratory Results Last 24 Hours Test 11/26/17 06:33 White Blood Count 14.46 K/uL Red Blood Count 3.65 M/uL Hemoglobin 10.8 g/dL Hematocrit 31.7 % Mean Corpuscular Volume 86.8 fL Mean Corpuscular Hemoglobin 29.6 pg Mean Corpuscular Hemoglobin Concent 34.1 g/dl RDW Standard Deviation 42.3 fL RDW Coefficient of Variation 13.1 % Platelet Count 210 K/uL Mean Platelet Volume 9.2 fL Sodium Level 138 mmol/L Potassium Level 4.5 mmol/L Chloride Level 106 mmol/L Carbon Dioxide Level 27 mmol/L Anion Gap 5.0 mmol/L Blood Urea Nitrogen 19 mg/dl Creatinine 0.99 mg/dl Est Creatinine Clear Calc Drug Dose 119.1 ml/min Estimated GFR () 99.7 Estimated GFR (Non- 86.0 BUN/Creatinine Ratio 19.4 Random Glucose 168 mg/dl Calcium Level 8.2 mg/dl Assessment and Plan 52 y/o male with a history of HTN, HLD, h/o PA at age 34, chronic lower back pain, and GERD who presents s/p right TKA w/removal of retained hardware with Dr. Juarez on 11/25 for medical management. S/p R TKA--POD #1 - Pain management, bowel regimen and DVT ppx with asa 81 mg BID per primary team - PT/OT evals. Home vs [facility]. Pt states splints must stay in place for 1.5 weeks before he can really participate in physical therapy. Case management following - AVSS Acute blood loss anemia in postop setting -Hgb 10.8 on 11/26, down from 13.9 in preop labs -Continue to monitor HTN, HLD, h/o PA, h/o tobacco--stable - Pt monitored on tele. No acute events overnight. Pt in sinus rhythm with HR 60s-70s. Stable, recommend moving off tele - HR down to 50s this am - Continue Coreg 12.5 mg BID w/hold parameters, Vasotec 40 mg PO qd, Lipitor 40 mg PO qd Chronic lower back pain--stable - Pain management consulted, appreciate recs: Increase epidural infusion rate. Continue oxycodone 120 mg PO BID ( reduced from home dose) and Valium 5 mg PO BID while on infusion, can return to higher outpatient oxycodone dose (160 BID) when epidural d/c'd. Gradually wean opioids/benzos - Continue oxycodone ER 120 mg BID, Valium 5 mg BID prn, currently on fentanyl/ bupivacaine epidural infusion per ortho/pain management GERD - Zantac 150 mg PO BID Pre-diabetes--stable - Hgb A1C = 6.0, will need to encourage diet and exercise prior to discharge, follow glucose while admitted Code Status -Level I, FULL RESUSCITATION STATUS Thank you for this consultation. We will continue to follow.
--- NOTE | 2017-11-26 11:00 | Anesthesiology Progress Note ---
Post OP Pain Management Date & Time of Service Nov 26, 2017 at 10:52 Subjective Therapies: Epidural/IV Drugs, Marcaine, Fentanyl, other (Current rate is 8ml/ hr with 4ml bolus q 20 min lockout. ) Patient was resting comfortably in bed reading the newspaper upon arrival. He is a very pleasant gentleman who is POD #1 RTKA. He is a known chronic pain patient so decision was made to do a combined spinal epidural for the procedure and keep the epidural in place for postop pain control. This AM, patient endorsed pain score of 4-6 out of ten depending on movement. He feels the epidural is working but his pain control could be better. He has occasional hit the bolus function on the epidural. Of note, he is voiding well and physical therapy had the patient OOB and ambulating this morning. Dr. Whalen of chronic pain is involved in this patient's care and is providing recommendations regarding his medication therapy. Objective Cathether Site: examined, palpated, intact, dry, non-tender, without erythma, without exudate Assessment & Plan Plan: After speaking at length with the patient, we agreed upon several things. Firstly, I am going to write to increase the rate of his epidural infusion to 12ml/hr with the continued 4 ml bolus function every 20 minutes. He was encouraged to hit the bolus button if his pain is not adequately controlled. I also told him that he should not be ambulating when he has the epidural in place as he could have lower extremity muscle weakness (which he endorsed along with feelings of b/l LE numbness, which is expected). Someone from the anesthesia service will reassess the patient tomorrow and if his pain is better controlled, plan would be to turn the continuous infusion rate to half of what it is and then either turn to off that day or wednesday. Plan would be to have the epidural removed this weekend depending on his pain control. He knows that the epidural is temporary and he needs to have this removed soon in order for him to successfully rehab his knee. He also knows that once the epidural is removed that his oral pain medication regimen will be returned to its higher presurgery dose. Mr. Gonsalez was agreeable to this plan. I also spoke to the patient's nurse and instructed him to place red socks on the patient (fall risk with epidural), he should not be ambulating until the epidural is out and to place him on a continuous pulse oximeter given his large opioid use and neuraxial opioids. All questions were answered prior to me leaving his room. Wily Burks MD Staff Anesthesiologist In house phone #[phone]
[2017-11-26 12:40] VITALS: BP 118/68; PULSE 56; TEMP 36.7; O2SAT 96
[2017-11-26] MEDS: FENTANYL 2.5MCG/ML BUPIV 0.0625% 100ML BAG EPI PRN ×2 (12:58→19:50)
[2017-11-26 15:38] VITALS: BP 115/67; PULSE 54; TEMP 37.1; O2SAT 94
[2017-11-26 20:05] VITALS: BP 104/64; PULSE 56; TEMP 36.4; O2SAT 99
[2017-11-26] MEDS: SENNA 8.6 MG TAB PO SCH (21:00)
[2017-11-26] MEDS: ATORVASTATIN 20 MG TAB PO SCH (21:00)
[2017-11-26] MEDS: DIAZEPAM 2MG TAB PO SCH (22:16)
[2017-11-26 23:48] VITALS: BP 126/64; PULSE 47; TEMP 36.7; O2SAT 99
[2017-11-27] MEDS: ATORVASTATIN 20 MG TAB PO SCH ×2 (00:06→20:39)
[2017-11-27] MEDS: SENNA 8.6 MG TAB PO SCH ×2 (00:06→20:40)
[2017-11-27] MEDS: NO NARCOTICS OR SEDATIVES SCH ×2 (00:08→08:34)
[2017-11-27] MEDS: FENTANYL 2.5MCG/ML BUPIV 0.0625% 100ML BAG EPI PRN (02:09)
[2017-11-27 04:25] VITALS: BP 110/64; PULSE 52; TEMP 36.6; O2SAT 97
[2017-11-27] MEDS: ACETAMINOPHEN 500 MG TAB PO SCH ×3 (06:07→21:50)
[2017-11-27 06:18] LABS: HEMATOCRIT 30.9 % (42-52); HEMOGLOBIN 10.3 g/dL (14.0-18.0); MEAN CELL VOLUME 90.1 fL (80-100); MEAN CORPUSCULAR HGB CONC 33.3 g/dl (32-36); MEAN PLATELET VOLUME 8.9 fL (7.4-10.4); PLATELET COUNT 198 K/uL (130-400); RED CELL DISTRIBUTION WIDTH CV 13.7 % (11.5-14.5); RED CELL DISTRIBUTION WIDTH SD 45.2 fL (36.4-46.3); WHITE BLOOD COUNT 9.01 K/uL (4.8-10.8)
[2017-11-27 06:58] LABS: CALCIUM 8.9 mg/dl (8.5-10.1); CREATININE 0.97 mg/dl (0.60-1.40); POTASSIUM 5.3 mmol/L (3.5-5.1)
[2017-11-27] MEDS ORDERED: SODIUM POLYST. SULF SUSP 15G/60ML PO STA (07:39)
[2017-11-27 07:48] VITALS: BP 115/71; PULSE 50; TEMP 36.6; O2SAT 97
[2017-11-27] MEDS: FERROUS GLUCONATE 324 MG TAB PO SCH ×3 (08:33→17:32)
[2017-11-27] MEDS: MULTIVITAMIN TAB PO SCH (08:34)
[2017-11-27] MEDS: CARVEDILOL 12.5 MG TAB PO SCH ×2 (08:35→20:39)
[2017-11-27] MEDS: CITALOPRAM 20 MG TAB PO SCH (08:35)
[2017-11-27] MEDS: ENALAPRIL MALEATE 10 MG TAB PO SCH (08:36)
[2017-11-27] MEDS: OXYCODONE HCL 40 MG TABCR (OXYCONTIN) PO SCH ×2 (08:41→20:57)
[2017-11-27] MEDS: DIAZEPAM 2MG TAB PO SCH ×2 (08:42→20:33)
[2017-11-27 09:04] LABS: CALCIUM 8.3 mg/dl (8.5-10.1); CREATININE 0.98 mg/dl (0.60-1.40); POTASSIUM 4.2 mmol/L (3.5-5.1)
[2017-11-27] MEDS: DOCUSATE SODIUM 100 MG CAP PO SCH ×2 (09:13→20:38)
[2017-11-27] MEDS: RANITIDINE HCL 150 MG TAB PO SCH ×2 (09:13→20:40)
[2017-11-27] MEDS: CeleBREX 200 MG CAP PO SCH ×2 (09:13→20:36)
[2017-11-27] MEDS: ASPIRIN 81 MG ECTAB PO SCH ×2 (09:13→20:38)
--- NOTE | 2017-11-27 10:23 | Orthopedic Progress Note ---
Orthopedic Progress Note Date of Service Nov 27, 2017. Subjective Post OP Day: 2 Reports: feeling well, Denies: chest pain, SOB, nausea / vomiting, light headedness, calf pain Objective calves soft nontender, N/V intact, splint C/D/I, capillary refill less than 2 sec., A&O x3, toes mobile, hemovac drainage Date Time Temp Pulse Resp B/P (MAP) Pulse Ox O2 Delivery O2 Flow Rate FiO2 11/27/17 07:48 36.6 50 18 115/71 (86) 97 Room Air 11/27/17 04:25 36.6 52 18 110/64 (79) 97 Room Air 11/27/17 04:00 Room Air 11/26/17 23:59 Nasal Cannula 2.0 11/26/17 23:48 36.7 47 18 126/64 (84) 99 Nasal Cannula 2.0 11/26/17 20:05 36.4 56 18 104/64 (77) 99 Nasal Cannula 1.5 11/26/17 20:00 Room Air 11/26/17 16:00 Room Air 11/26/17 15:38 37.1 54 18 115/67 (83) 94 Room Air 11/26/17 12:40 36.7 56 20 118/68 (85) 96 Room Air 11/26/17 12:00 Room Air Laboratory Results 24 Hours: Test 11/27/17 06:05 Hematocrit 30.9 % Hemoglobin 10.3 g/dL Assessment & Plan Assessment: 52 yo male stable POD #2 s/p right TKA, splint in place/no ROM of knee due to difficult closure, pt with chronic pain issues Plan: 1. Med management- likely continue epidural, managed by pain management, transfer to ortho floor when stable 2. DVT prophylaxis- ASA, SCDs 3. PT/OT- gait training, no knee ROM at this time 4. D/C planning- pt interested in [facility] Inhouse Planning DVT Prophylaxis: TEDs, SCDs, ASA Discharge Planning Discharge Planning: rehab hospital DVT Prophylaxis: TEDs, SCDs, ASA Therapy: Physical Therapy
--- NOTE | 2017-11-27 11:40 | Progress Note ---
Progress Note Date of Service Nov 27, 2017. Progress Note I saw the patient this morning and pulled his epidural catheter. He was sleeping when I walked in the room around noon. When I asked him how he was doing he said he was in a lot of pain although he did not appear to be in any pain. He easily rolled over on his side and I removed the catheter. The tip was intact.
[2017-11-27] MEDS ORDERED: NURSING VERBAL MED ORDER ONE (13:00)
[2017-11-27] MEDS: MoRPHine SULFATE 2 MG/ML CARP IV PRN ×3 (13:29→21:46)
--- NOTE | 2017-11-27 14:39 | Progress Note ---
Subjective Date of Service: Nov 27, 2017. Subjective Pt evaluation today including: conversation w/ patient, conversation w/ family , physical exam, chart review, lab review, review of studies, conversation w/ benefits consultant, review of inpatient medication list Up to the restroom with assistant director of financial aid, pain better controlled, epidural infusion was discontinued, no special complaint Review of Systems Constitutional: No fever, No chills, No sweats, No weight loss, No weakness, No fatigue, No problem reported Eyes: No worsening of vision, No eye pain, No redness, No discharge, No diplopia ENT: No hearing loss, No unusual epistaxis, No nasal symptoms, No sore throat, No tinnitus, No dental problems, No trouble swallowing Respiratory: No cough, No sputum, No wheezing, No shortness of breath, No dyspnea on exertion, No dyspnea at rest, No hemoptysis Cardiac: No chest pain, No orthopnea, No PND, No edema, No claudication, No palpitations Abdomen: No pain, No nausea, No vomiting, No diarrhea, No constipation Musculoskeletal: + joint pain, No muscle pain, No swelling, No calf pain Male : No dysuria, No urinary frequency, No incontinence, No nocturia more than once/night, No slowing stream, No hematuria Neurologic: No memory loss, No paralysis, No weakness, No numbness/tingling, No vertigo, No balance problems Psychiatric: No depression symptoms, No anhedonism, No anxiety, No insomnia, No substance abuse Heme: No abnormal bleeding/bruising, No clotting problems, No swollen lymph nodes, No night sweats Endo: No fatigue, No excessive thirst, No excessive urination Skin: No rash, No itch, No new/changing skin lesions, No color change, No bleeding Objective Vital Signs Date Time Temp Pulse Resp B/P (MAP) Pulse Ox O2 Delivery O2 Flow Rate FiO2 11/27/17 08:00 Room Air 11/27/17 07:48 36.6 50 18 115/71 (86) 97 Room Air 11/27/17 04:25 36.6 52 18 110/64 (79) 97 Room Air 11/27/17 04:00 Room Air 11/26/17 23:59 Nasal Cannula 2.0 11/26/17 23:48 36.7 47 18 126/64 (84) 99 Nasal Cannula 2.0 11/26/17 20:05 36.4 56 18 104/64 (77) 99 Nasal Cannula 1.5 11/26/17 20:00 Room Air 11/26/17 16:00 Room Air 11/26/17 15:38 37.1 54 18 115/67 (83) 94 Room Air Physical Exam General Appearance: WD/WN, no apparent distress, + obese Eyes: normal inspection, PERRL, EOMI, sclerae normal ENT: normal ENT inspection, hearing grossly normal, pharynx normal Neck: supple, no adenopathy, thyroid normal, no JVD, no carotid bruits, trachea midline Respiratory/Chest: chest non-tender, normal breath sounds, no respiratory distress, no accessory muscle use, + decreased breath sounds Cardiovascular: regular rate, rhythm, no edema, no gallop, no JVD, no murmur Abdomen: normal bowel sounds, non tender, soft, no organomegaly, no pulsatile mass Extremities: no pedal edema, no calf tenderness, normal capillary refill, pelvis stable 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, no motor/sensory deficits, alert, normal mood/affect, oriented x 3 Skin: normal color, warm/dry, no rash Lymphatic: no adenopathy Laboratory Results Last 24 Hours Test 11/27/17 06:05 11/27/17 07:56 White Blood Count 9.01 K/uL Red Blood Count 3.43 M/uL Hemoglobin 10.3 g/dL Hematocrit 30.9 % Mean Corpuscular Volume 90.1 fL Mean Corpuscular Hemoglobin 30.0 pg Mean Corpuscular Hemoglobin Concent 33.3 g/dl RDW Standard Deviation 45.2 fL RDW Coefficient of Variation 13.7 % Platelet Count 198 K/uL Mean Platelet Volume 8.9 fL Sodium Level 142 mmol/L 138 mmol/L Potassium Level 5.3 mmol/L 4.2 mmol/L Chloride Level 107 mmol/L 103 mmol/L Carbon Dioxide Level 33 mmol/L 32 mmol/L Anion Gap 2.0 mmol/L 3.0 mmol/L Blood Urea Nitrogen 17 mg/dl 15 mg/dl Creatinine 0.97 mg/dl 0.98 mg/dl Est Creatinine Clear Calc Drug Dose 123.6 ml/min 122.4 ml/min Estimated GFR () 102.2 100.9 Estimated GFR (Non- 88.1 87.1 BUN/Creatinine Ratio 17.5 15.6 Random Glucose 100 mg/dl 115 mg/dl Calcium Level 8.9 mg/dl 8.3 mg/dl Assessment and Plan 52 y/o male with a history of HTN, HLD, h/o [place] at age 34, chronic lower back pain, and GERD who presents s/p right TKA w/removal of retained hardware with Dr. Juarez on 11/25 Hospitalist consulted for medical management. S/p R TKA--POD #2 Pain management, bowel regimen and DVT ppx with asa 81 mg BID per primary team Patient is epidural infusion, okay to discontinue telemetry, and transfer to [facility] Continue supportive care Hyperkalemia potassium 5.3, gave a Kayexalate 1 dose, repeated potassium was normal, has bowel movement 1, will order labs tomorrow Continued [facility] stay due to: home environment unsafe for pt Discharge planning: uncertain
[2017-11-27 15:23] VITALS: BP 128/81; PULSE 53; TEMP 37.2; O2SAT 95
[2017-11-27 16:27] LABS: CREATININE 1.02 mg/dl (0.60-1.40); POTASSIUM 4.4 mmol/L (3.5-5.1)
[2017-11-27 22:51] VITALS: BP 127/74; PULSE 59; TEMP 36.8; O2SAT 98
[2017-11-27 23:40] VITALS: O2SAT 98
[2017-11-28] MEDS: MoRPHine SULFATE 2 MG/ML CARP IV PRN ×6 (02:05→23:09)
[2017-11-28 06:00] LABS: HEMATOCRIT 31.2 % (42-52); HEMOGLOBIN 10.4 g/dL (14.0-18.0); MEAN CELL VOLUME 89.9 fL (80-100); MEAN CORPUSCULAR HGB CONC 33.3 g/dl (32-36); MEAN PLATELET VOLUME 9.1 fL (7.4-10.4); PLATELET COUNT 201 K/uL (130-400); RED CELL DISTRIBUTION WIDTH CV 13.5 % (11.5-14.5); RED CELL DISTRIBUTION WIDTH SD 44.7 fL (36.4-46.3); WHITE BLOOD COUNT 7.89 K/uL (4.8-10.8)
[2017-11-28] MEDS: ACETAMINOPHEN 500 MG TAB PO SCH (06:00)
[2017-11-28 06:24] LABS: CALCIUM 8.5 mg/dl (8.5-10.1); CREATININE 0.88 mg/dl (0.60-1.40); POTASSIUM 4.1 mmol/L (3.5-5.1)
[2017-11-28 07:48] VITALS: BP 133/79; PULSE 63; TEMP 37; O2SAT 96
[2017-11-28] MEDS: MULTIVITAMIN TAB PO SCH (08:47)
[2017-11-28] MEDS: FERROUS GLUCONATE 324 MG TAB PO SCH ×3 (08:47→18:11)
[2017-11-28] MEDS: RANITIDINE HCL 150 MG TAB PO SCH ×2 (08:47→20:43)
[2017-11-28] MEDS: ENALAPRIL MALEATE 10 MG TAB PO SCH (08:47)
[2017-11-28] MEDS: CITALOPRAM 20 MG TAB PO SCH (08:47)
[2017-11-28] MEDS: ASPIRIN 81 MG ECTAB PO SCH ×2 (08:48→20:41)
[2017-11-28] MEDS: DOCUSATE SODIUM 100 MG CAP PO SCH ×2 (08:48→20:42)
[2017-11-28] MEDS: CARVEDILOL 12.5 MG TAB PO SCH ×2 (08:48→20:42)
[2017-11-28] MEDS: CeleBREX 200 MG CAP PO SCH ×2 (08:48→20:41)
[2017-11-28] MEDS: DIAZEPAM 2MG TAB PO SCH ×2 (08:51→20:39)
[2017-11-28] MEDS: OXYCODONE HCL 40 MG TABCR (OXYCONTIN) PO SCH ×2 (08:51→20:39)
--- NOTE | 2017-11-28 09:13 | Orthopedic Progress Note ---
Orthopedic Progress Note Date of Service Nov 28, 2017. Subjective Post OP Day: 3 Reports: feeling well, Denies: chest pain, SOB, nausea / vomiting, light headedness, calf pain, pain controlled w PO medications Objective calves soft nontender, N/V intact, splint C/D/I, capillary refill less than 2 sec., A&O x3, toes mobile, hemovac drainage Date Time Temp Pulse Resp B/P (MAP) Pulse Ox O2 Delivery O2 Flow Rate FiO2 11/28/17 07:48 37.0 63 17 133/79 (97) 96 Room Air 11/27/17 23:40 98 Nasal Cannula 2.0 11/27/17 22:51 36.8 59 16 127/74 (91) 98 Nasal Cannula 2.0 11/27/17 16:20 Room Air 11/27/17 15:26 37.2 53 18 95 2.0 11/27/17 15:23 37.2 53 18 128/81 (97) 95 Room Air 11/27/17 12:00 Room Air Laboratory Results 24 Hours: Test 11/28/17 04:59 Hematocrit 31.2 % Hemoglobin 10.4 g/dL Assessment & Plan Assessment: 52 yo male stable POD #3 s/p right TKA, splint in place/no ROM of knee due to difficult closure, pt with chronic pain issues Plan: 1. Med management- epidural dc, oxycontin 120 mg bid, (home dose 160 mg) added [place] 10/325 mg to help control pain 2. DVT prophylaxis- ASA, SCDs 3. PT/OT- gait training, no knee ROM at this time 4. D/C planning- pt interested in [facility], approved, waiting on bed Inhouse Planning Pain Management: Morphine, other (oxycontin) DVT Prophylaxis: TEDs, SCDs, ASA Discharge Planning Discharge Planning: rehab hospital DVT Prophylaxis: TEDs, SCDs, ASA Therapy: Physical Therapy
[2017-11-28] MEDS ORDERED: NURSING VERBAL MED ORDER ONE ×2 (09:15→10:30)
[2017-11-28] MEDS: HYDROCODONE/ACETAMI 10/325 TAB PO PRN ×3 (09:26→21:57)
[2017-11-28 15:11] VITALS: BP 129/72; PULSE 68; TEMP 37; O2SAT 93
--- NOTE | 2017-11-28 17:44 | Progress Note ---
Subjective Date of Service: Nov 28, 2017. Subjective Pt evaluation today including: conversation w/ patient, physical exam, chart review, lab review, review of studies, conversation w/ lean consultant, review of inpatient medication list Reported sleeping well last night after restarting him home dose of Valium at nighttime, otherwise eating drinking okay, no fever and chills Review of Systems Constitutional: + weakness, + fatigue, No fever, No chills, No sweats, No weight loss, No problem reported Eyes: No worsening of vision, No eye pain, No redness, No discharge, No diplopia ENT: No hearing loss, No unusual epistaxis, No nasal symptoms, No sore throat, No tinnitus, No dental problems, No trouble swallowing Respiratory: No cough, No sputum, No wheezing, No shortness of breath, No dyspnea on exertion, No dyspnea at rest, No hemoptysis Cardiac: No chest pain, No orthopnea, No PND, No edema, No claudication, No palpitations Abdomen: No pain, No nausea, No vomiting, No diarrhea, No constipation Musculoskeletal: + joint pain, No muscle pain, No swelling, No calf pain Male : No dysuria, No urinary frequency, No incontinence, No nocturia more than once/night, No slowing stream, No hematuria Neurologic: No memory loss, No paralysis, No weakness, No numbness/tingling, No vertigo, No balance problems Psychiatric: No depression symptoms, No anhedonism, No anxiety, No insomnia, No substance abuse Heme: No abnormal bleeding/bruising, No clotting problems, No swollen lymph nodes, No night sweats Endo: No fatigue, No excessive thirst, No excessive urination Skin: No rash, No itch, No new/changing skin lesions, No color change, No bleeding Objective Vital Signs Date Time Temp Pulse Resp B/P (MAP) Pulse Ox O2 Delivery O2 Flow Rate FiO2 11/28/17 15:11 37.0 68 16 129/72 (91) 93 11/28/17 07:48 37.0 63 17 133/79 (97) 96 Room Air 11/28/17 07:40 Room Air 11/27/17 23:40 98 Nasal Cannula 2.0 11/27/17 22:51 36.8 59 16 127/74 (91) 98 Nasal Cannula 2.0 Physical Exam General Appearance: WD/WN, no apparent distress, + obese Eyes: normal inspection, PERRL, EOMI, sclerae normal ENT: normal ENT inspection, hearing grossly normal, pharynx normal Neck: supple, no adenopathy, thyroid normal, no JVD, no carotid bruits, trachea midline Respiratory/Chest: chest non-tender, lungs clear, normal breath sounds, no respiratory distress, no accessory muscle use Cardiovascular: regular rate, rhythm, no edema, no gallop, no JVD, no murmur Abdomen: normal bowel sounds, non tender, soft, no organomegaly, no pulsatile mass Extremities: normal range of motion, non-tender, normal inspection, no pedal edema, no calf tenderness, normal capillary refill, pelvis stable, + pertinent finding (Right knee local in dress) 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, no motor/sensory deficits, alert, normal mood/affect, oriented x 3 Skin: normal color, warm/dry, no rash Lymphatic: no adenopathy Laboratory Results Last 24 Hours Test 11/28/17 04:59 White Blood Count 7.89 K/uL Red Blood Count 3.47 M/uL Hemoglobin 10.4 g/dL Hematocrit 31.2 % Mean Corpuscular Volume 89.9 fL Mean Corpuscular Hemoglobin 30.0 pg Mean Corpuscular Hemoglobin Concent 33.3 g/dl RDW Standard Deviation 44.7 fL RDW Coefficient of Variation 13.5 % Platelet Count 201 K/uL Mean Platelet Volume 9.1 fL Sodium Level 140 mmol/L Potassium Level 4.1 mmol/L Chloride Level 104 mmol/L Carbon Dioxide Level 36 mmol/L Anion Gap 0.0 mmol/L Blood Urea Nitrogen 15 mg/dl Creatinine 0.88 mg/dl Est Creatinine Clear Calc Drug Dose 136.3 ml/min Estimated GFR () 112.9 Estimated GFR (Non- 97.4 BUN/Creatinine Ratio 16.9 Random Glucose 96 mg/dl Calcium Level 8.5 mg/dl Assessment and Plan 52 y/o male admitted to orthopedic service, s/p right TKA w/removal of retained hardware on 11/25 Hospitalist consulted for medical management. S/p R TKA--POD #2 Pain management, bowel regimen and DVT ppx with asa 81 mg BID per primary team Patient is epidural infusion, okay to discontinue telemetry, and transfer to [facility] Continue supportive care Hyperkalemia potassium 5.3, gave a Kayexalate 1 dose, repeated potassium was normal, has bowel movement 1, follow-up on lab of potassium has been stable and in normal range History of HTN, HLD, h/o [place] at age 34, chronic lower back pain, and GERD: Stable continue current medication, Advised him to follow-up with PCP after discharge from orthopedic service Hospitalist sign out Continued [facility] stay due to: home environment unsafe for pt Discharge planning: uncertain
[2017-11-28] MEDS: SENNA 8.6 MG TAB PO SCH (20:40)
[2017-11-28] MEDS: ATORVASTATIN 20 MG TAB PO SCH (20:42)
[2017-11-28 22:50] VITALS: BP 108/68; PULSE 68; TEMP 36.7; O2SAT 98
[2017-11-29] MEDS: HYDROCODONE/ACETAMI 10/325 TAB PO PRN ×3 (02:36→16:03)
[2017-11-29] MEDS: MoRPHine SULFATE 2 MG/ML CARP IV PRN ×5 (04:32→23:25)
[2017-11-29 05:26] LABS: HEMATOCRIT 30.8 % (42-52); HEMOGLOBIN 10.2 g/dL (14.0-18.0); MEAN CELL VOLUME 88.8 fL (80-100); MEAN CORPUSCULAR HEMOGLOBIN 29.4 pg (25-34); MEAN CORPUSCULAR HGB CONC 33.1 g/dl (32-36); MEAN PLATELET VOLUME 8.4 fL (7.4-10.4); PLATELET COUNT 197 K/uL (130-400); RED CELL DISTRIBUTION WIDTH CV 13.1 % (11.5-14.5); RED CELL DISTRIBUTION WIDTH SD 42.7 fL (36.4-46.3); WHITE BLOOD COUNT 6.94 K/uL (4.8-10.8)
[2017-11-29 05:57] LABS: CALCIUM 8.5 mg/dl (8.5-10.1); CREATININE 0.79 mg/dl (0.60-1.40); POTASSIUM 4.2 mmol/L (3.5-5.1)
[2017-11-29 07:04] VITALS: BP 124/72; PULSE 58; TEMP 36.7; O2SAT 94
[2017-11-29] MEDS: FERROUS GLUCONATE 324 MG TAB PO SCH ×3 (07:53→17:57)
--- NOTE | 2017-11-29 08:33 | Orthopedic Progress Note ---
Orthopedic Progress Note Date of Service Nov 29, 2017. Subjective Post OP Day: 4 Reports: feeling well, Denies: chest pain, SOB, nausea / vomiting, light headedness, calf pain Additional Notes: Currently rating pain 6/10. Had PO meds early this am. Still required Morphine at 0500. Also having second thoughts re: [facility]. Feels he would be ok to go home at this point since he is not to be doing therapy. Objective calves soft nontender, N/V intact, capillary refill less than 2 sec., dressing C /D/I, A&O x3, toes mobile, hemovac drainage (25cc per shift) Date Time Temp Pulse Resp B/P (MAP) Pulse Ox O2 Delivery O2 Flow Rate FiO2 11/29/17 07:45 Room Air 11/29/17 07:04 36.7 58 16 124/72 (89) 94 Room Air 11/29/17 00:00 Nasal Cannula 2.0 11/28/17 22:50 36.7 68 18 108/68 (81) 98 Nasal Cannula 2.0 11/28/17 16:00 Room Air Nasal Cannula 11/28/17 15:11 37.0 68 16 129/72 (91) 93 Laboratory Results 24 Hours: Test 11/29/17 05:14 Hematocrit 30.8 % Hemoglobin 10.2 g/dL Assessment & Plan Assessment: 52 yo male stable POD #4 s/p right TKA, splint in place/no ROM of knee due to difficult closure, pt with chronic pain issues Plan: 1. Med management- epidural dc, oxycontin 120 mg bid, (home dose 160 mg) added [place] 10/325 mg to help control pain. WILL NEED NARCAN RX ON DC. 2. DVT prophylaxis- ASA, SCDs 3. PT/OT- gait training, no knee ROM at this time. PLASTER SPLINT IN PLACE. DO NOT REMOVE. OK TO DC HEMOVAC 4. D/C planning- pt ACCEPTED AT [facility]. NOW CONSIDERING DC TO HOME. WILL HAVE CM REVISIT AND POSSIBLY DISCUSS HOME NURSING OPTIONS IF NECESSARY. WILL SEE HOW HE DOES WITH PT TODAY AND HOW HIS PAIN CONTROL IS. POSSIBLE DC TO HOME LATER TODAY. 11:29 Addendum: I discussed pain management with Dr Bee this AM. Recommendations are to start regular home dose since the epidural has been dc' d. I will increase the Oxycontin to 160mg po bid. Hopefully , this will decrease his requirement for IV Morphine use here. Plans will be for possible dc today vs tomorrow. Inhouse Planning Pain Management: Morphine, other (oxycontin) DVT Prophylaxis: TEDs, SCDs, ASA Discharge Planning Discharge Planning: rehab hospital DVT Prophylaxis: IASBELAs, SCDs, ASA Therapy: Physical Therapy
--- NOTE | 2017-11-29 08:37 | Discharge Instructions ---
Discharge Instructions Date of Service Nov 29, 2017. Admission Reason for Admission: Right Knee Retained Hardware Discharge Discharge Diagnosis / Problem: SP RIGHT TKA REVISION WITH DIFFICULT CLOSURE. Discharge Goals Goal(s): Decrease discomfort, Improve function, Increase independence Activity Recommendations Activity Limitations: per Instructions/Follow-up section . Instructions / Follow-Up Instructions / Follow-Up ACTIVITY RECOMMENDATIONS: SELF CARE INSTRUCTIONS AFTER TOTAL KNEE REPLACEMENT A. You SHOULD REMAIN IN KNEE SPLINT UNTIL POST OP VISIT WITH DR. FLOOD. NO KNEE FLEXION AT THIS TIME. B. You may progress at your own pace from walking with a walker or crutches C. Make walking a part of your daily routine. Be up as much as comfortable with rest periods throughout the day. Rest with leg elevation is very important. Use the ice wrap frequently for the first 3-4 weeks. D. There are no restrictions on activities. You may ride in a car, shop, participate in steel cutter and all social activities. E. Wear the long elastic stockings (ISABELA hose) 20 hours a day for 2 weeks after surgery. They can be removed several times a day for laundering and for a bath. F. You may shower, no tub baths until cleared by your doctor. SPECIAL CARE INSTRUCTIONS: VERY IMPORTANT TO READ AND REVIEW A. There are a few signs you need to watch for after you are home. Call [facility] if you notice any of the followin. Increased severe knee pain. Some pain is expected especially when you exercise. 2. Increased swelling in your leg or knee; pain or swelling of the calf muscle in either lower leg. 3. Any fluid drainage from the incision. 4. Shortness of breath or chest pain. B. Please call [facility] at if you have any concerns or questions about your operation or recovery. The doctor or his nurse will return your call promptly. C. You must take antibiotics before dental work, bladder, bowel or other surgery. Your doctor will provide you with a permanent care to carry describing this precaution. IMPORTANT: * REMEMBER TO TAKE ASPIRIN, 81 MG, TWICE DAILY FOR 4 WEEKS UNLESS OTHERWISE DIRECTED. THIS IS YOUR BLOOD THINNER. * HIGH RISK PATIENTS MAY BE PRESCRIBED A STRONGER BLOOD THINNER. THIS WILL BE PROVIDED AT DISCHARGE. * CALL IF INCREASED PAIN, REDNESS, DRAINAGE OR FEVER GREATER THAT 101. * WEAR ISABELA HOSE 20 HOURS PER DAY FOR 2 WEEKS. * Standard sandra/no adhesive- Please keep incision clean and dry. You may shower. Alpha should be removed in 10-14 days at the office. This appointment is likely already scheduled for you. Please call if any increased redness, drainage, or swelling. KEEP SPLINT CLEAN AND DRY. DO NOT SHOWER. DO NOT REMOVE. FOLLOW UP VISIT: If appointment is not already scheduled: Please call [facility] to make a follow-up appointment for 2 weeks after your surgery at . Current Hospital Diet Patient's current hospital diet: Regular Diet Discharge Diet Recommended Diet: Regular Diet Procedures Procedures Performed: Right Total Knee Arthroplasty Constrained with Removal of Hardware Right Knee Pending Studies Studies pending at discharge: no Laboratory Results Hemoglobin A1c Test 10/28/17 12:34 Range/Units Estimated Average Glucose 126 mg/dl Hemoglobin A1c 6.0 H 4.5-5.6 % Medical Emergencies . Who to Call and When: Medical Emergencies: If at any time you feel your situation is an emergency, please call 911 immediately. . Non-Emergent Contact Non-Emergency issues call your: Surgeon . "Provider Documentation" section prepared by Danni Navarro. .
[2017-11-29] MEDS: MULTIVITAMIN TAB PO SCH (08:42)
[2017-11-29] MEDS: CITALOPRAM 20 MG TAB PO SCH (08:42)
[2017-11-29] MEDS: DIAZEPAM 2MG TAB PO SCH ×2 (08:42→21:26)
[2017-11-29] MEDS: CARVEDILOL 12.5 MG TAB PO SCH ×2 (08:44→21:27)
[2017-11-29] MEDS: CeleBREX 200 MG CAP PO SCH ×2 (08:45→21:27)
[2017-11-29] MEDS: RANITIDINE HCL 150 MG TAB PO SCH ×2 (08:45→21:27)
[2017-11-29] MEDS: ENALAPRIL MALEATE 10 MG TAB PO SCH (08:45)
[2017-11-29] MEDS: ASPIRIN 81 MG ECTAB PO SCH ×2 (08:45→21:26)
[2017-11-29] MEDS: DOCUSATE SODIUM 100 MG CAP PO SCH ×2 (08:46→21:27)
[2017-11-29] MEDS ORDERED: HYDR-4079 PO (08:48)
[2017-11-29] MEDS ORDERED: CLB200 PO (08:48)
[2017-11-29] MEDS ORDERED: NALO1SPR IM (08:48)
[2017-11-29] MEDS ORDERED: ASPI81TA28 PO (08:48)
[2017-11-29] MEDS ORDERED: SENN-61 PO (08:48)
[2017-11-29] MEDS: OXYCODONE HCL 40 MG TABCR (OXYCONTIN) PO SCH ×2 (09:33→21:26)
--- NOTE | 2017-11-29 12:16 | Orthopedic Progress Note ---
Orthopedic Progress Note Date of Service Nov 29, 2017. Subjective Post OP Day: 4 Reports: feeling well, Denies: complaints Additional Notes: I was asked to see pt for drain removal. Pt's current dressing incorporates medial/lateral splints that were covering up the drain access. Pt is lying in bed. He's awake, alert. Dressing was partially taken down. Objective Full dressing removed. Wound is very benign. No erythema. Mild swelling noted. Drain removed without difficulty. New dressing applied. Wrapped with webril and plaster splints reapplied to the medial/lateral sides of the extremity. Ian wrap applied as well. Pt tolerated well and stated that his pain scale # is at a 5. He had just received IV Morphine Sulfate prior to the dressing change. Date Time Temp Pulse Resp B/P (MAP) Pulse Ox O2 Delivery O2 Flow Rate FiO2 11/29/17 07:45 Room Air 11/29/17 07:04 36.7 58 16 124/72 (89) 94 Room Air 11/29/17 00:00 Nasal Cannula 2.0 11/28/17 22:50 36.7 68 18 108/68 (81) 98 Nasal Cannula 2.0 11/28/17 16:00 Room Air Nasal Cannula 11/28/17 15:11 37.0 68 16 129/72 (91) 93 Laboratory Results 24 Hours: Test 11/29/17 05:14 Hematocrit 30.8 % Hemoglobin 10.2 g/dL Assessment & Plan Assessment: 52 yo male stable POD #4 s/p right TKA, Dressing/Splint changed/reapplied. Plan: As explained in my addendum in from this AM's progress note, I had spoken to Dr Bee prior to coming to patient's room for dressing change. Oxycontin increased to 160mg po bid. I will change the Morphine dosing to 2mg IV q4h. Continue the [place] as written. Pt stating he will plan on DC to home tomorrow. Narcan rx on chart. Explained to patient why he needed this and he seems to understand. Continue plans for no ROM of the right knee until seen back in the office by Dr Juarez. Inhouse Planning Pain Management: Oxycontin, [place], Morphine DVT Prophylaxis: TEDs, SCDs, ASA Discharge Planning Discharge Planning: home with home health DVT Prophylaxis: TEDs, SCDs, ASA Therapy: Physical Therapy
[2017-11-29] MEDS ORDERED: KETOROLAC TROMETHAMINE 30 MG/ML VIAL IV PRN (12:30)
[2017-11-29 15:22] VITALS: BP 117/73; PULSE 64; TEMP 37.2; O2SAT 92
[2017-11-29] MEDS: ATORVASTATIN 20 MG TAB PO SCH (21:27)
[2017-11-29] MEDS: SENNA 8.6 MG TAB PO SCH (21:27)
[2017-11-29 21:30] VITALS: BP 112/72; PULSE 66; TEMP 36.6
[2017-11-29 23:00] VITALS: BP 112/64; PULSE 62; TEMP 36.6; O2SAT 97
[2017-11-29 23:40] VITALS: O2SAT 97
[2017-11-30] MEDS: HYDROCODONE/ACETAMI 10/325 TAB PO PRN (03:11)
[2017-11-30] MEDS: MoRPHine SULFATE 2 MG/ML CARP IV PRN (05:25)
[2017-11-30 08:32] VITALS: BP 153/91; PULSE 64; TEMP 36.4; O2SAT 93
--- NOTE | 2017-11-30 08:36 | Orthopedic Progress Note ---
Orthopedic Progress Note Date of Service November 30, 2017. Subjective Post OP Day: 5 Reports: feeling well, Denies: complaints Additional Notes: Patient is sitting at the bedside eating breakfast. He is alert and oriented 3. States he is looking forward to going home. He asked me to look at his splints because one on the lateral side seemed to be riding up onto his incision area. Objective calves soft nontender, N/V intact, capillary refill less than 2 sec., dressing C /D/I, A&O x3, toes mobile Ian wrap was removed, and some of the cotton Webril was removed. The medial and lateral splints were readjusted to the patient's satisfaction and they were secured with more Webril and Ian wrap. Date Time Temp Pulse Resp B/P (MAP) Pulse Ox O2 Delivery O2 Flow Rate FiO2 11/29/17 23:40 97 Room Air 2.0 11/29/17 23:00 36.6 62 17 112/64 (80) 97 Room Air 11/29/17 21:30 36.6 66 112/72 (85) 11/29/17 16:00 Room Air 11/29/17 15:22 37.2 64 18 117/73 (88) 92 Room Air Assessment & Plan Assessment: 52 yo male stable POD #5 s/p right TKA, Dressing/Splint changed/reapplied. Plan: Plan for PT this morning and then discharged home. Prescriptions have been placed on the chart and signed by Dr. Juarez. Per Dr. Bee's recommendations , patient will continue his OxyContin as he has been taking it at home twice daily. A prescription for [place] has been placed in the chart for breakthrough pain. I discussed with the patient that if his OxyContin is providing enough pain control, that he may not need the [place]. A Narcan prescription has been provided as well and this was discussed with the patient. He will need to follow-up with Dr. Juarez in approximately a week to have a wound check with plans to start PT for range of motion. Inhouse Planning Pain Management: Oxycontin, [place], Morphine DVT Prophylaxis: TEDs, SCDs, ASA Discharge Planning Discharge Planning: home with home health DVT Prophylaxis: TEDs, SCDs, ASA Therapy: Physical Therapy
[2017-11-30] MEDS: OXYCODONE HCL 40 MG TABCR (OXYCONTIN) PO SCH (09:13)
[2017-11-30] MEDS: DIAZEPAM 2MG TAB PO SCH (09:13)
[2017-11-30] MEDS: DOCUSATE SODIUM 100 MG CAP PO SCH (09:13)
[2017-11-30] MEDS: CARVEDILOL 12.5 MG TAB PO SCH (09:14)
[2017-11-30] MEDS: ENALAPRIL MALEATE 10 MG TAB PO SCH (09:14)
[2017-11-30] MEDS: RANITIDINE HCL 150 MG TAB PO SCH (09:14)
[2017-11-30] MEDS: CITALOPRAM 20 MG TAB PO SCH (09:14)
[2017-11-30] MEDS: CeleBREX 200 MG CAP PO SCH (09:14)
[2017-11-30] MEDS: MULTIVITAMIN TAB PO SCH (09:14)
[2017-11-30] MEDS: ASPIRIN 81 MG ECTAB PO SCH (09:15)
[2017-11-30] MEDS: FERROUS GLUCONATE 324 MG TAB PO SCH (09:15)
[2017-11-30 09:35] VITALS: O2SAT 93
[2017-11-30 09:36] VITALS: BP 153/91; PULSE 64; TEMP 36.4; O2SAT 93
--- NOTE | 2017-11-30 10:06 | DISCHARGE SUMMARY ---
DISCHARGE DIAGNOSIS: Degenerative joint disease, right knee. SECONDARY DIAGNOSES: Chronic back pain with use of chronic narcotics, history of coronary artery disease and myocardial infarction at age 34, asthma. CONSULTS: Josselyn Siddiqi PA-C/Madelin Higgins MD, Arden Bee MD. COMPLICATIONS: None. PROCEDURES: Removal of hardware and right total knee arthroplasty by Dr. Juarez on 11/25/2017. BRIEF HISTORY: As dictated in the history and physical. HOSPITAL SUMMARY: The patient was admitted on the above date and had the above-noted surgery performed which the patient tolerated well. Postoperatively, [place] Hospitalist service was consulted for medical coverage and care, and Dr. Bee was consulted for pain management issues. The patient has a history of taking large doses of OxyContin twice daily out of the norm, and it was felt that this would be best addressed by Dr. Bee. On his first postoperative day, he was feeling well, no complaints. Neurovascular was intact. Dressings were clean, dry, and intact, and toes were mobile. Vital signs were stable, he was afebrile. He was kept in telemetry overnight secondary to having an epidural catheter placed for pain control. Plans were to continue the epidural catheter into the second postoperative day and then discontinue and start him back on his regular medications. Dr. Bee saw the patient on the first postoperative day and made recommendations including starting the OxyContin at a lesser dose than what he was used to taking but then just to prevent opiate withdrawal, and then once the epidural catheter was removed, to recommend the patient continue on his typical outpatient dose as previously prior to admission. He and I also discussed the use of [place] or Vicodin as breakthrough pain sparingly if needed, and at this point, the patient noted being on diazepam, would plan for a lesser dose while here at the hospital. The patient was then started on physical therapy protocol and continued on DVT prophylaxis and pain management. Plans were to keep him in extension due to his capsular tissues being somewhat thinned out and weak due to heterotopic ossification over time, but he was weightbearing as tolerated and up and ambulating. On second postoperative day, he was feeling well and had no complaints. Calves were soft and nontender, neurovascular intact. Splint was intact. Toes were mobile. Vital signs were stable, he was afebrile. Hemoglobin was 10.3, and he was continued on his protocol. Plans were initially for the patient to go to [facility] post discharge; however, as he was progressing with his PT, he felt that he did not need to do that since he was not having to do any range of motion at this time until seen in the office by Dr. Juarez. He was progressing well with his physical therapy, and he chose to do home with home health or outpatient PT at [facility] near [place]. The rest of his stay was essentially eventful. By 11/29/2017, he had been resumed on his regular dose of OxyContin that he normally takes at home. His IV morphine was cut back to a 2 mg dose, and Toradol IV 30 mg was added q.6 h. A dressing change was performed, and his wound looks very benign, no erythema, mild swelling, and was redressed, and the medial and lateral buttress splints were reapplied to the leg to keep him in extension. By 11/30/2017, the patient was remaining stable. He was alert and oriented x3, sitting up eating his breakfast, looking forward to going home. Pain was controlled. Dressings were intact, and it was felt that he could be discharged to home. For further review, please see chart. LABORATORY AND X-RAY DATA: As per chart. DISCHARGE INSTRUCTIONS: The patient was discharged to home in satisfactory condition on 11/30/2017. Diet: Regular. Activity: Keep the knee splint in place until he is seen by Dr. Juarez. No knee flexion at this time. Follow the rest of the TKA instructions and special care instructions as noted. Follow up with Dr. Juarez in 2 weeks. DISCHARGE MEDICATIONS: Celebrex 200 mg p.o. b.i.d., [place] 10/325 one tablet p.o. q.4 h. p.r.n., Narcan 0.4 mg IM q.2-3 minutes p.r.n., senna 17.2 mg p.o. at bedtime. Resume home medications as listed including OxyContin 160 mg p.o. q.12 h., aspirin 81 mg p.o. b.i.d. for 30 days. After 30 days, resume once daily dosing. Stop taking ibuprofen.
== END 2017-11-30 10:29 | disposition home or self-care (01) | DRG 470 ==
LOC: C.ACU 08:20 → C.2T 13:34 → ENRESERV 13:55 → CANRESERV 11-27 14:16 → ENRESERV 11-27 14:16 → C.3E 11-27 16:03
PROC: 0SRC0J9 Replacement of Right Knee Joint with Synthetic Substitute, Cemented, Open Approach (ICD-10-PCS; principal; 2017-11-25 11:15)
PROC: 0SPC04Z Removal of Internal Fixation Device from Right Knee Joint, Open Approach (ICD-10-PCS; principal; 2017-11-25 11:15)
DX: M17.31 Unilateral post-traumatic osteoarthritis, right knee (principal); F11.20 Opioid dependence, uncomplicated; F13.20 Sedative, hypnotic or anxiolytic dependence, uncomplicated; D62 Acute posthemorrhagic anemia; E66.01 Morbid (severe) obesity due to excess calories; Z68.41 Body mass index [BMI] 40.0-44.9, adult; G89.18 Other acute postprocedural pain; E87.5 Hyperkalemia; G89.29 Other chronic pain; M54.5 Low back pain; I10 Essential (primary) hypertension; E78.5 Hyperlipidemia, unspecified; R73.03 Prediabetes; K21.9 Gastro-esophageal reflux disease without esophagitis; I25.2 Old myocardial infarction; Z79.82 Long term (current) use of aspirin; Z79.899 Other long term (current) drug therapy; Z87.891 Personal history of nicotine dependence; Z96.643 Presence of artificial hip joint, bilateral; Z98.890 Other specified postprocedural states; Z88.5 Allergy status to narcotic agent

== ENCOUNTER 2022-12-22 10:28 | Inpatient (IN) ==
--- NOTE | 2022-11-24 09:52 | PAT Medication Instructions ---
Medication Instructions Date of Service November 24, 2022 Home Medications atorvastatin 40 mg tablet (Lipitor) 80 mg PO HS carvedilol 12.5 mg tablet (Coreg) 25 mg PO BID multivitamin with iron-mineral 1 tab PO QAM omega-3 fatty acids 2,400 mg PO HS duloxetine 60 mg capsule,delayed release 60 mg PO BID eplerenone 25 mg tablet 25 mg PO QAM lorazepam 0.5 mg tablet 0.5 mg PO TID PRN Anxiety omeprazole 20 mg capsule,delayed release 20 mg PO QAM oxycodone-acetaminophen 7.5 mg-325 mg tablet (Percocet) 1 tab PO Q4H PRN Pain potassium chloride 20 mEq tablet,extended release 20 meq PO QAM sacubitril 49 mg-valsartan 51 mg tablet (Entresto) 1 tab PO BID sildenafil 100 mg tablet (Viagra) 50 mg PO DAILY PRN Erectile Dysfunction torsemide 20 mg tablet 60 mg PO QPM trazodone 100 mg tablet 100 mg PO HS PRN Anxiety flaxseed oil 1,000 mg capsule 1,000 mg PO HS turmeric 400 mg capsule 400 mg PO HS STOP taking 2 weeks before surgery flaxseed oil 1,000 mg capsule 1,000 mg PO HS turmeric 400 mg capsule 400 mg PO HS omega-3 fatty acids 2,400 mg PO HS DO NOT take the morning of surgery multivitamin with iron-mineral 1 tab PO QAM potassium chloride 20 mEq tablet,extended release 20 meq PO QAM eplerenone 25 mg tablet 25 mg PO QAM sacubitril 49 mg-valsartan 51 mg tablet (Entresto) 1 tab PO BID sildenafil 100 mg tablet (Viagra) 50 mg PO DAILY PRN Erectile Dysfunction Take morning of surgery With a small sip of water, OTHERWISE NOTHING TO EAT OR DRINK AFTER MIDNIGHT: oxycodone-acetaminophen 7.5 mg-325 mg tablet (Percocet) 1 tab PO Q4H PRN Pain ( if needed) lorazepam 0.5 mg tablet 0.5 mg PO TID PRN Anxiety (if needed) duloxetine 60 mg capsule,delayed release 60 mg PO BID carvedilol 12.5 mg tablet (Coreg) 25 mg PO BID omeprazole 20 mg capsule,delayed release 20 mg PO QAM Take evening before surgery atorvastatin 40 mg tablet (Lipitor) 80 mg PO HS oxycodone-acetaminophen 7.5 mg-325 mg tablet (Percocet) 1 tab PO Q4H PRN Pain ( if needed) lorazepam 0.5 mg tablet 0.5 mg PO TID PRN Anxiety (if needed) duloxetine 60 mg capsule,delayed release 60 mg PO BID carvedilol 12.5 mg tablet (Coreg) 25 mg PO BID torsemide 20 mg tablet 60 mg PO QPM trazodone 100 mg tablet 100 mg PO HS PRN Anxiety (if needed) sacubitril 49 mg-valsartan 51 mg tablet (Entresto) 1 tab PO BID Other Notes If you have any questions please call us at [phone] or [phone] or [phone] or [phone]
--- NOTE | 2022-11-30 09:14 | Anesthesiology Consultation ---
Date of Service November 30, 2022 Assessment & Plan (1) Encounter for pre-operative examination: Chart Review Chart Review: Pending: Refer to Additional Notes / Consult section (pending cardio clearance 12/07/22, most recent pacer check, cardiac testing if available, and PCP clearance 12/04/22) and Patient seen in Pre Admission Testing - Awaiting cardio clearance 12/07/22 (please get last pacer/ICD check and any cardiac testing if done since 2017) - Awaiting PCP clearance 12/04/22 Per PAT appt on 11/30/22, patient denies any recent travel or large group activities. Pt is vaccinated for Covid. Will leave to surgeon's discretion if preop Covid testing needed. Educated on importance of using Covid precautions one week prior to surgery Right TKA constrained 11/25/17= Done under SAB at L3-4 with 1 attempt Teaching & Discussion Pre-Anesthesia Teaching/Discussion Notes: Instructed NPO after midnight before surgery,except medications with 15 cc of water. Medication instructions provided according to the PAT guidelines. History Surgery Operation Date: 12/22/22 10:05 Proposed Procedures p L4-S1 Revision Decompression and Fusion, Spinal Cord Monitoring - Bobby Bell, Height/Weight Height: 5 ft 11 in Weight: 126.7 kg Allergies Allergy/AdvReac Type Severity Reaction Status Date / Time bupropion [From Wellbutrin] AdvReac Intermediate Dizziness Verified 11/24/22 08:59 gabapentin [From Neurontin] AdvReac Intermediate Nausea Verified 11/24/22 08:59 Medications Home Medications Medication Instructions Recorded Confirmed Last Taken atorvastatin 40 mg tablet (Lipitor) 80 mg PO HS 02/06/21 11/24/22 11/16/22 19:00 carvedilol 12.5 mg tablet (Coreg) 25 mg PO BID 02/06/21 11/24/22 11/17/22 07:00 multivitamin with iron-mineral 1 tab PO QAM 02/06/21 11/24/22 11/17/22 07:00 omega-3 fatty acids 2,400 mg PO HS 02/06/21 11/24/22 11/16/22 19:00 duloxetine 60 mg capsule,delayed 60 mg PO BID 11/17/22 11/24/22 11/17/22 07:00 release eplerenone 25 mg tablet 25 mg PO QAM 11/17/22 11/24/22 11/16/22 19:00 lorazepam 0.5 mg tablet 0.5 mg PO TID PRN Anxiety 11/17/22 11/24/22 11/16/22 19:00 omeprazole 20 mg capsule,delayed 20 mg PO QAM 11/17/22 11/24/22 11/17/22 07:00 release oxycodone-acetaminophen 7.5 mg-325 1 tab PO Q4H PRN Pain 11/17/22 11/24/22 11/17/22 07:00 mg tablet (Percocet) potassium chloride 20 mEq 20 meq PO QAM 11/17/22 11/24/22 11/17/22 07:00 tablet,extended release sacubitril 49 mg-valsartan 51 mg 1 tab PO BID 11/17/22 11/24/22 11/17/22 07:00 tablet (Entresto) sildenafil 100 mg tablet (Viagra) 50 mg PO DAILY PRN Erectile 11/17/22 11/24/22 Unknown Dysfunction torsemide 20 mg tablet 60 mg PO QPM 11/17/22 11/24/22 11/16/22 19:00 trazodone 100 mg tablet 100 mg PO HS PRN Anxiety 11/17/22 11/24/22 11/16/22 19:00 flaxseed oil 1,000 mg capsule 1,000 mg PO HS 11/24/22 11/24/22 Unknown turmeric 400 mg capsule 400 mg PO HS 11/24/22 11/24/22 Unknown Past Medical History Medical History (Updated 11/30/22 @ 09:27 by Marisa Oquendo PA-C) Anxiety GERD (gastroesophageal reflux disease) Well controlled and stable History of COVID-19 2019, contracted [place], not hosp 2020, drive thru test at the [facility], not hosp 11/2021, contracted at [facility] following back surgery, tested at [facility]; hot, sweaty, clammy, no appetite>resolved. HLD (hyperlipidemia) HTN (hypertension) Hx of cardiac pacemaker w/internal defibrillator, placed 2020, [facility], [employer]; f/u Aliya De Santiago, [facility] Cardiology Hx of myocardial infarction age 34, was not feeling well- troponins elevated; did not have cardiac cath until year later - no stents or bypass; left side of heart affected; f/u Aliya [place] Hypertriglyceridemia LBBB (left bundle branch block) Exercise / Class Metabolic Activity II 4-5 Yardwork/Stairs/Walk up hill (one flight of stairs - no chest pain or SOB ) Past Surgical History Surgical History History of cardiac cath 10-12 years ago "maybe longer," [place] or [place], no stents History of hernia repair History of left knee surgery History of lumbar surgery x2, most recent 01/27/[address] [place] [address] Richard Estrella History of total left hip arthroplasty Hx of colonoscopy Hx of repair of left rotator cuff x2 Hx of shoulder surgery biceps tendon repair Past Anesthesia History No Hx of Anesthesia Complications and No Family Hx of Anesthesia Complications History of PONV No Hx of Motion Sickness and History of PONV (remote hx with knee surgery (many years ago)- no issues since ) Social History Smoking Status: Former smoker Do You Dip or Chew Tobacco: No Smoking End Date: "LONG TIME AGO" Hx Alcohol Use: Yes (HX-QUIT YEARS AGO) Hx Substance Use: No substance use type: does not use Review of Systems Hx of blood transfusion with lumbar surgery in 12/2021 Hx of snoring in the past- had sleep study in the past - inconclusive Patient denies chest pain, shortness of breath, dyspnea on exertion, cough, wheezing, palpitations. No hx of seizures, stroke. No hx of blood clots or blood transfusions Physical Exam Vital Signs VITALS BP 110/70 (manually) P 77 TEMP 98.4 SP02 93% RESP 16 Constitutional no acute distress ENMT Mouth: no TMJ clicking Thyromental Distance: > or= 3.5 Finger Breadths (4.0) Mallampati Class: III Mouth / Teeth: 1. Missing Neck + limited neck extension (moderate) Respiratory normal respiratory effort; no respiratory distress Auscultation: lungs clear to auscultation bilaterally; no wheezes Cardiovascular Rate/Rhythm: regular rate and regular rhythm Heart Sounds: no murmur Vessels: no carotid bruit Heart sounds diminished throughout Musculoskeletal Spine: + pain with cervical ROM (significant pain with neck extension) Extremities: extremities normal to inspection Psychiatric Orientation: alert Lab Results Anesthesia Preop Results Results Anesthesia Widget: WBC 6.48 K/ul (4.8-10.8) 11/30/22 Hgb 14.1 g/dl (14.0-18.0) 11/30/22 Hct 40.6 % (42.0-52.0) L 11/30/22 Plt 281 K/uL (130-400) 11/30/22 Na 140 mmol/L (136-145) 11/30/22 K 3.6 mmol/L (3.5-5.1) 11/30/22 Cl 95 mmol/L (98-107) L 11/30/22 CO2 36 mmol/L (21-32) H 11/30/22 BUN 14 mg/dl (6-23) 11/30/22 Creat 0.83 mg/dl (0.6-1.4) 11/30/22 Glucose Level 141 mg/dl (70-99(Fasting)) H 11/30/22 PT 10.7 Seconds (9.0-12.0) 11/30/22 PTT 27.5 Seconds (21.0-31.0) 11/30/22 INR 1.0 (0.9-1.1) 11/30/22 Urine Color Yellow 11/30/22 Urine Appearance Clear (Clear) 11/30/22 Urine pH 6.0 (4.5-7.5) 11/30/22 Urine Specific [place] 1.014 (1.000-1.030) 11/30/22 Urine Protein Negative (Negative) 11/30/22 Urine Glucose (UA) Negative (Negative) 11/30/22 Urine Ketones Negative (Negative) 11/30/22 Urine Blood Negative (Negative) 11/30/22 Urine Nitrite Negative (Negative) 11/30/22 Urine Bilirubin Negative (Negative) 11/30/22 Urine Urobilinogen Negative (Negative) 11/30/22 Urine Leukocyte Esterase Negative (Negative) 11/30/22 Blood Type A Negative 11/30/22 Antibody Screen NEGATIVE 11/30/22 Testing Electrocardiogram Date: 11/30/22 Atrial sensed ventricular paced rhythm at 71 bpm Chest X-Ray Date: 11/30/22 FINDINGS: PA and lateral chest radiographs are compared to study dated 08/19/2009 . A 3-lead cardiac AICD is new from previous. This partially obscures left apex. The heart is enlarged. The pulmonary vasculature is noncongested. The lungs and pleural spaces are clear noting mild bibasilar atelectasis. There is no pneumothorax. The skeletal structures are osteopenic. The bony thorax appears intact. IMPRESSION: 1. Cardiomegaly and AICD without radiographic evidence of congestive failure. 2. The lungs are clear. Echocardiogram Date: 04/05/18 EF: 40-45% Other Findings: + LVH (Mild/concentric) Valvular Disease: + no significant valvular disease Mild to moderate global hypokinesis of left ventricle Abnormal (dyssynergic) septal motion, consistent with left bundle branch block. Interventricular septal wall thickness is mildly increased. Compared to prior study 11/10/2017, there is no significant change. Stress Test Date: 11/17/17 Type: nuclear EKG regadenoson stress test is nondiagnostic due to left bundle branch block No arrhythmias. No chest pain. No left bundle branch block. Myocardial perfusion imaging study is abnormal following pharmacologic stress with regadenoson. No definite stress-induced perfusion abnormalities identified. Small sized mild severity apical and distal anteroseptal perfusion abnormality or area of myocardial infarction Septal dyskinesis. Diffuse hypokinesis of the other left ventricle segments. LVEF 47% poststress and 40% at rest COVID-19 Risk Screen Screening Information COVID-19 Screen Date: 11/30/22 Exposure 21 Days Family/Household +COVID Last 21 Days: No Exposure 10 Days Any COVID Exposure Last 10 Days: No Symptoms Last 10 Days Experienced COVID Sx Last 10 Days: No + COVID 0-90 Days COVID + in Last 0-90 Days: No Risk Plan COVID Risk Plan: No Risk Identified Patient Education COVID Preop Screening Education Complete: Yes
[~2022-12-22 10:28] MED LIST changes: -ASPI81TA28 PO; -ATOR-24 PO; -BUPIVACAINE 0.5 % 5 MG/1 ML PF 10ML VIAL ONE; -CARV12.52 PO; -CEFAZOLIN 3000MG IV PUSH 22.5 ML IV SCH; -CITA20TA9 PO; -DEXAMETHASONE 4 MG TAB PO SCH; -DIAZ-165 PO; -FAMOTIDINE 20 MG TAB PO SCH; -FENO48TA9 PO; +GABAPENTIN 600 MG DOSE PO SCH; -GABAPENTIN 900 MG PO SCH; -IBUP600T44 PO; -LACTATED RINGER'S 1000ML 1,000 ML IV SCH; +LR 15ML/HR IV SCH; -METOCLOPRAMIDE HCL 10 MG TAB PO SCH; -MULT-513 PO; -OMEG10007 PO; -OXYC80TA16 PO; -PSYL48.59 PO; -RAMI10CA PO; -RANI150T85 PO; -ROPIVACAINE 5MG/ML 30 ML 150 MG, BUPIVACAINE 0.5% MPF INJ 30 ML, EpINEphrine HCL INJ 0.... INFIL SCH
[2022-12-22] MEDS ORDERED: fentaNYL citrate PF 100 MCG/2 ML VIAL ONE ×2 (11:58→15:42)
[2022-12-22] MEDS ORDERED: MIDAZOLAM HCL 1 MG/ML 2ML VIAL ONE (11:58)
--- NOTE | 2022-12-22 12:41 | History & Physical Bridge Note ---
Date of Service December 22, 2022 History & Physical Bridge Note I have examined the patient, reviewed the History & Physical and in the interval since the performance of the History & Physical I have noted the following changes of clinical significance: no changes noted
--- NOTE | 2022-12-22 12:42 | History & Physical Report ---
Date of Service December 22, 2022 Assessment & Plan (1) Neurogenic claudication due to lumbar spinal stenosis: Plan: L4-S1 revision decompression and fusion History of Present Illness Chief Complaint: Back and left leg pain Primary Care Provider: Luis Bedolla This is a 57-year-old male presents for persistent back and leg pain status post lumbar decompression fusion a year ago. After failing course of nonoperative care is here for revision surgery. Allergies Allergy/AdvReac Type Severity Reaction Status Date / Time bupropion [From Wellbutrin] AdvReac Intermediate Dizziness Verified 12/22/22 10:54 gabapentin [From Neurontin] AdvReac Intermediate Nausea Verified 12/22/22 10:54 Home Medications Medication Instructions Recorded Confirmed Type atorvastatin 40 mg tablet (Lipitor) 80 mg PO HS 02/06/21 12/22/22 History carvedilol 12.5 mg tablet (Coreg) 25 mg PO BID 02/06/21 12/22/22 History multivitamin with iron-mineral 1 tab PO QAM 02/06/21 12/22/22 History omega-3 fatty acids 2,400 mg PO HS 02/06/21 12/22/22 History lorazepam 0.5 mg tablet 0.5 mg PO TID PRN Anxiety 11/17/22 12/22/22 History omeprazole 20 mg capsule,delayed 20 mg PO QAM 11/17/22 12/22/22 History release oxycodone-acetaminophen 7.5 mg-325 1 tab PO Q4H PRN Pain 11/17/22 12/22/22 History mg tablet (Percocet) potassium chloride 20 mEq 20 meq PO QAM 11/17/22 12/22/22 History tablet,extended release sacubitril 49 mg-valsartan 51 mg 1 tab PO BID 11/17/22 12/22/22 History tablet (Entresto) sildenafil 100 mg tablet (Viagra) 50 mg PO DAILY PRN Erectile 11/17/22 12/22/22 History Dysfunction torsemide 20 mg tablet 60 mg PO QPM 11/17/22 12/22/22 History trazodone 100 mg tablet 100 mg PO HS PRN Anxiety 11/17/22 12/22/22 History flaxseed oil 1,000 mg capsule 1,000 mg PO HS 11/24/22 12/22/22 History turmeric 400 mg capsule 400 mg PO HS 11/24/22 12/22/22 History Past Med/Surg History Medical History (Updated 12/22/22 @ 12:42 by Bobby Bell, ) Anxiety CAD (coronary artery disease) Nonobstructive per records CHF (congestive heart failure) Dilated cardiomyopathy s/p ICD GERD (gastroesophageal reflux disease) Well controlled and stable History of COVID-19 2019, contracted overseas, not hosp 2020, drive thru test at the [employer] by [facility], not hosp 11/2021, contracted at [facility] following back surgery, tested at [facility]; hot, sweaty, clammy, no appetite>resolved. HLD (hyperlipidemia) HTN (hypertension) Hx of cardiac pacemaker w/internal defibrillator, placed 2020, [facility], [facility]; f/u Aliya De Santiago [facility] Cardiology Hx of myocardial infarction age 34, was not feeling well- troponins elevated; did not have cardiac cath until year later - no stents or bypass; left side of heart affected; f/u Aliya De Santiago [place] Hypertriglyceridemia LBBB (left bundle branch block) Surgical History History of cardiac cath 10-12 years ago "maybe longer," [place] or [facility], no stents History of hernia repair History of left knee surgery History of lumbar surgery x2, most recent 01/27/[address] [place] [address] Richard Estrella History of total left hip arthroplasty Hx of colonoscopy Hx of repair of left rotator cuff x2 Hx of shoulder surgery biceps tendon repair Social History (Updated 11/17/22 @ 10:36 by Lucio Castaneda RN) Smoking Status: Former smoker Tobacco Type: Cigarettes Age Started Using Tobacco: 33; Age Quit Using Tobacco: 42; Smoking End Date: "LONG TIME AGO"; Second Hand Exposure: Yes (HX); Do You Dip or Chew Tobacco: No; Tobacco Cessation Education Requested by Patient: No Hx Alcohol Use: Yes (HX-QUIT YEARS AGO) Hx Substance Use: No Preferred Language: Tuvaluan Communication Ability: Effective Visual Impairment: No Limitations Hearing Ability: Normal Frame Trimmer Required: No Beliefs That Will Affect Care: None marital status: Current Living Situation: Alone current occupational status: disabled Other Information That Helps Us Care for You: No Feels Safe at Home: Yes Safety Concerns: Feels Safe At This Time Childhood Exposure to Second-Hand Smoke: Yes Diet: low salt caffeine: Yes (tea) during the past year weight has: remained stable Dental Care, Regularly: Yes Physical Activity Frequency: Does not Exercise Physical Activity Frequency Comment: very difficult with current back pain Seatbelt Use: always Sunscreen Use: Yes Gender Identity: Male Assistive Devices: None Physical Exam Physical Exam: Patient is alert and oriented Heart regular rhythm Lungs clear Results & Data Results & Data Vital Signs (Past 12 Hours) Vital Signs Temp Pulse Resp BP Pulse Ox O2 Del Method 12/22/22 11:01 37 C 72 18 135/92 94 Room Air
[2022-12-22] MEDS ORDERED: BUPIVACAINE/EPINEPHRINE 0.25% 1:200,000 30 ML VIAL ONE (12:43)
[2022-12-22] MEDS ORDERED: ceFAZolin 330 MG/ML 1 GM VIAL ONE (12:43)
[2022-12-22] MEDS ORDERED: PROMETHAZINE HCL 6.25 MG in SODIUM CHLORIDE 0.9% 50 ML IV PRN (12:52)
[2022-12-22] MEDS ORDERED: ATROPINE SULFATE 0.1 MG/ML 10ML SYR IV PRN (12:52)
[2022-12-22] MEDS ORDERED: ONDANSETRON INJ 2 MG/ML 2 ML VIAL IV PRN ×2 (12:52→17:03)
[2022-12-22] MEDS ORDERED: ePHEDrine sulfate 50 MG/ML AMP IV PRN (12:52)
[2022-12-22] MEDS ORDERED: HYDROmorphone INJ 2 MG/ML SYR/VIAL IV PRN (12:52)
[2022-12-22] MEDS ORDERED: ROCURONIUM BROMIDE 10 MG/ML 5 ML VIAL IV ONE ×4 (12:55→15:34)
[2022-12-22] MEDS ORDERED: PROPOFOL IV EMULSION 10 MG/ML 20 ML VIAL IV ONE (13:55)
[2022-12-22] MEDS ORDERED: DEXAMETHASONE SOD INJ 4 MG/ML VIAL ONE (13:55)
[2022-12-22] MEDS ORDERED: ONDANSETRON INJ 2 MG/ML 2 ML VIAL ONE (13:55)
[2022-12-22] MEDS ORDERED: FLOSEAL HEMOSTATIC MATRIX 10ML TOP ONE (14:24)
--- NOTE | 2022-12-22 15:41 | Operative Report ---
Post Operative Report Pre & Post Diagnosis Operation Date: 12/22/22 12:25 Pre-Op Diagnosis: Neurogenic claudication due to lumbar spinal stenosis Post-Op Diagnosis: Neurogenic claudication due to lumbar spinal stenosis I identified the patient and participated in the time-out.: Yes Procedure Operation Date: 12/22/22 12:25 Actual Procedures #1 removal of posterior instrumentation L4-L5 L5-S1. #2 exploration of fusion L4-L5 L5-S1 #3 revision decompression L4-L5 L5-S1 including medial facetectomies. #4 placement posterior instrumentation L4-L5 L5-S1. #5 revision fusion L4-L5 L5-S1. #6 interbody fusion L4-L5. #7 placement of Spira 15 x 26 mm cage at L4-L5. #8 placement locally harvested morselized autograft and posterior gutters. #9 placement of I factor in the interbody space and infuse collagen sponge, master graft in the posterior gutters L4-S1. Surgeon Bobby Bell, DO Draw Off Worker Hue Mayfield Estimated Blood Loss 300 Findings See Below The patient is 5 foot 11 weighing over 125 kg with a BMI in excess of 38. Patient's body habitus did create significant technical difficulty requiring her deepest retractors and longer instruments in order to perform his procedure. This had at least 50% increased operative time. Specimens None Indications This is a 57-year-old male who presents above-mentioned diagnosis after failed course of nonoperative care is here for surgical invention. Description of Procedure Patient was met with identified informed consent obtained. Patient was then taken to the operative suite underwent patient placed in a prone position on the Hunt table top Kam frame. All bony promises well-padded eyes inspected to ensure no external pressure placed upon the. This point the lumbar spine was prepped and draped in a sterile fashion. Sharp dissection with the assistance of Bovie cautery performed down to and exposing the remaining lamina and transverse processes of L4-L5 and the sacral ala bilaterally. I then proceeded move the hardware bilaterally noticing marked loosening of the bilateral S1 scre ws and the bilateral L4 screws. Then exposed the fusion bed noting it to be immature and all evidence of fusion. I then replaced the hardware with larger screws providing better fixation. Appropriate sized emily was then placed. Then performed a revision decompression bilateral foraminotomies L4-L5 L5-S1 addressing severe stenosis particular on the left at L4-L5. By way of transforaminal approach and left complete discectomy of L4-5 was performed endplates curetted to subcortically bone and a 15 x 26 mm Spira cage with I factor tapped the position. Rods were then locked in final position b ilaterally. The transverse processes of L4-L5 and the sacral ala burred to subcortical bleeding bone. Infuse collagen sponge from mass graft locally harvested morselized graft was then placed in the posterior gutters. 15 round ADA drain inserted. The incision was then closed with 1 Vicryl the fascia 2-0 Vicryl subcutaneously and 4 Monocryl for final skin closure. Steri-Strips and sterile dressings placed. Patient waken taken to PACU stable condition. Please note spinal cord monitoring was utilized at the procedure no changes noted. Lastly Hue Mayfield was present at the entire surgery and while the patient positioning complex portion of the surgery and final skin closure. I attest to the content of the Intraoperative Record and any orders documented therein. Any exceptions are noted below.
[2022-12-22] MEDS ORDERED: SUGAMMADEX SODIUM 200 MG/2 ML VIAL IV ONE (15:48)
[2022-12-22] MEDS: fentaNYL citrate PF 100 MCG/2 ML VIAL IV PRN ×2 (16:22→16:27)
[2022-12-22] MEDS ORDERED: LORazepam 2 MG/1 ML VIAL IV PRN (17:03)
[2022-12-22] MEDS ORDERED: METOCLOPRAMIDE HCL INJ 5 MG/ML 2 ML VIAL IV PRN (17:03)
[2022-12-22] MEDS ORDERED: NALOXONE HCL 0.4 MG/1 ML VIAL/CARP IV PRN (17:03)
[2022-12-22] MEDS ORDERED: PROMETHAZINE HCL 12.5 MG in SODIUM CHLORIDE 0.9% 50 ML IV PRN (17:03)
[2022-12-22] MEDS ORDERED: SOD PHOSPHATE/SOD BIPHOSPHATE ENEMA 132 ML BTL PR PRN (17:03)
[2022-12-22] MEDS ORDERED: ONDANSETRON 4 MG OD TAB PO PRN (17:03)
[2022-12-22] MEDS ORDERED: traZODone HCL 100 MG TAB PO PRN (17:03)
[2022-12-22] MEDS ORDERED: FAMOTIDINE 20 MG TAB PO PRN (17:03)
[2022-12-22] MEDS ORDERED: HYDROmorphone INJ 0.5 MG/0.5 ML SYR IV PRN (17:03)
[2022-12-22] MEDS ORDERED: hydrOXYzine HCl 25 MG TAB PO PRN (17:03)
[2022-12-22] MEDS ORDERED: DO NOT ADMINISTER FLU VACCINE PRN (17:03)
[2022-12-22] MEDS ORDERED: diphenhydrAMINE Capsule 25 MG CAP PO PRN (17:03)
[2022-12-22] MEDS ORDERED: DO NOT ADMINISTER PNEUMOCOCCAL VACCINE PRN (17:03)
[2022-12-22] MEDS ORDERED: ALUMINUM/MAGNESIUM SUSP 30 ML UDC PO PRN (17:03)
[2022-12-22] MEDS ORDERED: MAGNESIUM HYDROXIDE SUSP 30 ML UDC PO PRN (17:03)
[2022-12-22] MEDS ORDERED: bisacodyL 10 MG SUPP PR PRN (17:03)
--- NOTE | 2022-12-22 17:05 | Anesthesiology Progress Note ---
Date of Service December 22, 2022 Anesthesia Post Procedure Vital Signs Vital Signs: Temp Pulse Pulse Resp BP Pulse Ox O2 Del Method 12/22/22 16:45 36.3 C L 70 16 127/77 98 Nasal Cannula 12/22/22 16:35 71 20 128/85 96 Nasal Cannula 12/22/22 16:25 68 12 119/75 95 Nasal Cannula 12/22/22 16:15 74 15 126/81 98 Nasal Cannula 12/22/22 16:05 75 11 L 135/81 98 Nasal Cannula 12/22/22 15:55 36.8 C 79 17 126/96 97 Nasal Cannula 12/22/22 11:01 37 C 72 18 135/92 94 Room Air O2 Flow Rate 12/22/22 16:45 2 12/22/22 16:35 2 12/22/22 16:25 2 12/22/22 16:15 4 12/22/22 16:05 4 12/22/22 15:55 4 12/22/22 11:01 Pain Intensity Lower Back: Pain Intensity: 4 Transfer of Care Handoff Completed per policy Notes Mental Status: alert / awake / arousable Patient Amnestic to Procedure: Yes Nausea / Vomiting: adequately controlled Pain: adequately controlled Airway Patency, RR, SpO2: stable & adequate BP & HR: stable & adequate Hydration State: stable & adequate Anesthetic Complications: no major complications apparent
[2022-12-22] MEDS: oxyCODONE HCL IR 5 MG TAB (IMMEDIATE RELEASE) PO PRN (18:23)
--- NOTE | 2022-12-22 18:57 | Hospitalist Consultation ---
Date of Consultation December 22, 2022 Assessment & Plan (1) Postoperative pain after spinal surgery: (2) CHF (congestive heart failure): (3) CAD (coronary artery disease): (4) LBBB (left bundle branch block): (5) HTN (hypertension): (6) Hx of cardiac pacemaker: (7) GERD (gastroesophageal reflux disease): (8) Anxiety: Plan This is a 57-year-old male with PMH of systolic CHF, CAD, hypertension, status post cardiac pacemaker placement, history of left bundle branch block, mood disorder and other medical problems listed below who is POD#0 s/premoval of posterior instrumentation L4-L5 L5-S1, exploration of fusion L4-L5 L5-S1 #3 revision decompression L4-L5 L5-S1 including medial facetectomies and placement posterior instrumentation L4-L5 L5-S1. S/p spinal surgery POD#0 s/p removal of posterior instrumentation L4-L5 L5-S1, exploration of fusion L4-L5 L5-S1,revision decompression L4-L5 L5-S1 and placement posterior instrumentation L4-L5 L5-S1 by Dr. Bell Per ortho for pain control, wound care, anticoagulation and activities Monitor H&H (EBL 300ml, pre-op hgb 14.1), continue incentive spirometry, PT/OT when appropriate Chronic systolic CHF, h/o dilated cardiomyopathy Follows with Aliya De Santiago, [facility] Cardiology Most recent echo with EF 45-50% Appears euvolemic post-op. Reduced fluid rate. Continue home dose Torsemide 60mg HS, Coreg, Entresto CAD Stable. Continue statin, coreg S/p pacemaker placement HTN Normotensive. Continue Entresto, Torsemide with hold parameters Mood disorder Continue home PRN ativan, PRN trazodone. Caution while receiving narcotics post- operatively PCP: Debbie Dispo: Per primary service Patient seen in collaboration with Dr. Corado. Please see addendum. I spent a total of 60 minutes coordinating, documenting, and providing care for this patient excluding time spent in the performance of separately billed services. Thank you for this consultation. We will follow the patient with you during their hospital stay. You can reach a member of the [facility] Hospitalist Team 22/02 via [facility]. Supervising Physician Co-Signing Physician Notes Patient was seen and examined independently. Chart reviewed. Case discussed with ROMERO History of Present Illness Reason for Consultation: Postop medical management Attending Physician: Bobby Bell DO History of Present Illness This is a 57-year-old male with PMH of systolic CHF, CAD, hypertension, status post cardiac pacemaker placement, history of left bundle branch block, mood disorder and other medical problems listed below who is POD#0 s/p removal of posterior instrumentation L4-L5 L5-S1, exploration of fusion L4-L5 L5-S1 #3 revision decompression L4-L5 L5-S1 including medial facetectomies and placement posterior instrumentation L4-L5 L5-S1. Patient is feeling well postoperatively. Denies any surgical site pain, numbness or pain in lower extremities at this time. Resting comfortably watching television. Receives primary care and cardiology care near [place]. Resides in [place], [place]. Has history of systolic heart failure with most recent echo showing EF of 45 to 50%. Is on torsemide 60 mg nightly and took it last evening prior to surgery. Denies any fever, chills, headache, chest pain, shortness of breath, nausea, vomiting, abdominal pain, dysuria, diarrhea or constipation. Allergies Allergy/AdvReac Type Severity Reaction Status Date / Time bupropion [From Wellbutrin] AdvReac Intermediate Dizziness Verified 12/22/22 10:54 gabapentin [From Neurontin] AdvReac Intermediate Nausea Verified 12/22/22 10:54 Home Medications Medication Instructions Recorded Confirmed Type atorvastatin 40 mg tablet (Lipitor) 80 mg PO HS 02/06/21 12/22/22 History carvedilol 12.5 mg tablet (Coreg) 25 mg PO BID 02/06/21 12/22/22 History multivitamin with iron-mineral 1 tab PO QAM 02/06/21 12/22/22 History omega-3 fatty acids 2,400 mg PO HS 02/06/21 12/22/22 History lorazepam 0.5 mg tablet 0.5 mg PO TID PRN Anxiety 11/17/22 12/22/22 History omeprazole 20 mg capsule,delayed 20 mg PO QAM 11/17/22 12/22/22 History release oxycodone-acetaminophen 7.5 mg-325 1 tab PO Q4H PRN Pain 11/17/22 12/22/22 History mg tablet (Percocet) potassium chloride 20 mEq 20 meq PO QAM 11/17/22 12/22/22 History tablet,extended release sacubitril 49 mg-valsartan 51 mg 1 tab PO BID 11/17/22 12/22/22 History tablet (Entresto) sildenafil 100 mg tablet (Viagra) 50 mg PO DAILY PRN Erectile 11/17/22 12/22/22 History Dysfunction torsemide 20 mg tablet 60 mg PO QPM 11/17/22 12/22/22 History trazodone 100 mg tablet 100 mg PO HS PRN Anxiety 11/17/22 12/22/22 History flaxseed oil 1,000 mg capsule 1,000 mg PO HS 11/24/22 12/22/22 History turmeric 400 mg capsule 400 mg PO HS 11/24/22 12/22/22 History Patient History Medical History (Updated 12/22/22 @ 22:11 by Malorie Romo PA-C) Anxiety CAD (coronary artery disease) Nonobstructive per records CHF (congestive heart failure) Dilated cardiomyopathy s/p ICD GERD (gastroesophageal reflux disease) Well controlled and stable History of COVID-19 2019, [place], not hosp 2020, drive thru test at [facility], not hosp 11/2021, contracted at [facility] following back surgery, tested at [facility]; hot, sweaty, clammy, no appetite>resolved. HLD (hyperlipidemia) HTN (hypertension) Hx of cardiac pacemaker w/internal defibrillator, placed 2020, [facility], [facility]; f/u Aliya De Santiago [facility] Cardiology Hx of myocardial infarction age 34, was not feeling well- troponins elevated; did not have cardiac cath until year later - no stents or bypass; left side of heart affected; f/u [facility] Hypertriglyceridemia LBBB (left bundle branch block) Surgical History History of cardiac cath 10-12 years ago "maybe longer," [place] or [facility], no stents History of hernia repair History of left knee surgery History of lumbar surgery x2, most recent 01/27/[address] [place] [address] Richard Estrella History of total left hip arthroplasty Hx of colonoscopy Hx of repair of left rotator cuff x2 Hx of shoulder surgery biceps tendon repair Family History Other Diabetes Heart disease Social History Smoking Status: Former smoker Tobacco Type: Cigarettes Age Started Using Tobacco: 33; Age Quit Using Tobacco: 42; Smoking End Date: "LONG TIME AGO"; Second Hand Exposure: Yes (HX); Do You Dip or Chew Tobacco: No; Tobacco Cessation Education Requested by Patient: No Hx Alcohol Use: Yes (HX-QUIT YEARS AGO) Hx Substance Use: No Preferred Language: Malian Communication Ability: Effective Visual Impairment: No Limitations Hearing Ability: Normal Filling Separator Required: No Beliefs That Will Affect Care: None marital status: Current Living Situation: Alone current occupational status: disabled Other Information That Helps Us Care for You: No Feels Safe at Home: Yes Safety Concerns: Feels Safe At This Time Childhood Exposure to Second-Hand Smoke: Yes Diet: low salt caffeine: Yes (tea) during the past year weight has: remained stable Dental Care, Regularly: Yes Physical Activity Frequency: Does not Exercise Physical Activity Frequency Comment: very difficult with current back pain Seatbelt Use: always Sunscreen Use: Yes Gender Identity: Male Assistive Devices: None Review of Systems Review of Systems: At least ten systems reviewed and negative except as noted in the HPI. Physical Exam Physical Exam: General Appearance: WD/WN, vitals as above, NAD, sitting up in bed, pleasant, conversing easily Head: normocephalic, atraumatic Eyes: normal inspection, PERRL, conjunctivae normal ENT: oropharynx normal Neck: normal visual inspection, trachea midline, no thyromegaly Respiratory: normal respiratory effort, lungs clear to auscultation, no wheeze, rales, rhonchi. No accessory muscle use Cardiovascular: regular rate, rhythm, no murmur, normal peripheral pulses, no BLE edema. Vessels: no JVD Abdomen/GI: normal bowel sounds, soft, nontender Extremities/Musculoskeletal: +Spinal dressing c/d/i, ADA drain visualized. No cyanosis or clubbing, extremities motor strength 5/5, +BLE shala hose Neurologic: PERRL, no face palsy, no dysarthria, CN's II-XI intact bilaterally and moves all extremities Psychiatric: A+Ox3, euthymic affect Skin: no rashes, normal color, warm/dry Results & Data Results & Data Vital Signs (Past 12 Hours) Vital Signs Temp Pulse Pulse Resp BP Pulse Ox O2 Del Method 12/22/22 18:00 36.4 C L 71 18 108/75 97 Nasal Cannula 12/22/22 17:28 36.5 C 68 18 113/71 97 Nasal Cannula 12/22/22 17:17 Nasal Cannula 12/22/22 17:00 36.7 C 67 19 98/62 L 97 Nasal Cannula 12/22/22 16:45 36.3 C L 70 16 127/77 98 Nasal Cannula 12/22/22 16:35 71 20 128/85 96 Nasal Cannula 12/22/22 16:25 68 12 119/75 95 Nasal Cannula 12/22/22 16:15 74 15 126/81 98 Nasal Cannula 12/22/22 16:05 75 11 L 135/81 98 Nasal Cannula 12/22/22 15:55 36.8 C 79 17 126/96 97 Nasal Cannula 12/22/22 11:01 37 C 72 18 135/92 94 Room Air O2 Flow Rate 12/22/22 18:00 2 12/22/22 17:28 2 12/22/22 17:17 12/22/22 17:00 2 12/22/22 16:45 2 12/22/22 16:35 2 12/22/22 16:25 2 12/22/22 16:15 4 12/22/22 16:05 4 12/22/22 15:55 4 12/22/22 11:01
[2022-12-22] MEDS: ACETAMINOPHEN 1,000 MG/100 ML VIAL IV PRN (20:14)
[2022-12-22] MEDS: LACTATED RINGER'S 1,000 ML IV SCH (20:14)
[2022-12-22] MEDS: HYDROmorphone INJ 1 MG/ML SYRINGE IV PRN (21:01)
[2022-12-22] MEDS: ceFAZolin 2000MG 2,000 MG/15 ML SYR IV SCH (21:22)
[2022-12-22] MEDS: carvediloL 25 MG TAB PO SCH (21:22)
[2022-12-22] MEDS: VALSARTAN/SACUBITRIL 51/49 MG TAB PO SCH (21:23)
[2022-12-22] MEDS: DOCUSATE SODIUM/SENNA 50/8.6MG TAB PO SCH (21:23)
[2022-12-22] MEDS: ATORVASTATIN 40 MG TAB PO SCH (21:23)
[2022-12-22] MEDS: TORSEMIDE 20 MG TAB PO SCH (21:24)
[2022-12-22] MEDS: LORazepam 0.5 MG TAB PO PRN (21:29)
[2022-12-23] MEDS: oxyCODONE HCL IR 5 MG TAB (IMMEDIATE RELEASE) PO PRN ×3 (01:03→20:05)
[2022-12-23] MEDS: ACETAMINOPHEN 1,000 MG/100 ML VIAL IV PRN ×2 (04:00→12:24)
[2022-12-23] MEDS: ceFAZolin 2000MG 2,000 MG/15 ML SYR IV SCH (06:01)
[2022-12-23] MEDS: LACTATED RINGER'S 1,000 ML IV SCH (06:01)
[2022-12-23] MEDS: POLYETHYLENE (MIRALAX) 17 GM PACK PO SCH ×4 (06:06→23:36)
--- NOTE | 2022-12-23 06:37 | Fluoroscopy Report ---
FL lumbar spine 2-3V CLINICAL HISTORY: L4-S1 DFI COMPARISON STUDY: None. FLUOROSCOPY TIME: 9.9 seconds. FLUOROSCOPY IMAGES: 2 Ka,r: 9.2 mGy FINDINGS: Posterior decompression and fusion from L4 through S1 with pedicle screws and rods. The david dware appears intact. IMPRESSION: Fluoroscopic assistance as above. ACT 112: Negative or not required by law. Electronically signed by: Sebastian Sanabria M.D. 12/23/2022 6:35 AM
[2022-12-23] MEDS: HYDROmorphone INJ 1 MG/ML SYRINGE IV PRN ×2 (07:35→12:25)
[2022-12-23] MEDS: PANTOprazole 40 MG TAB PO SCH (07:41)
[2022-12-23] MEDS: MULTIVITAMIN TAB PO SCH (07:41)
[2022-12-23] MEDS: carvediloL 25 MG TAB PO SCH ×2 (07:42→21:41)
[2022-12-23] MEDS: POTASSIUM CHLORIDE CRTAB 20 MEQ TABCR PO SCH (07:42)
[2022-12-23] MEDS: dexAMETHasone 6 MG in SYRINGE 0 ML IV SCH (07:43)
[2022-12-23 07:44] LABS: Basophils # (auto) 0.01 K/uL (0-0.2); Basophils % (auto) 0.1 %; Hematocrit (blood only) 30.9 % (42.0-52.0); Hemoglobin 10.6 g/dl (14.0-18.0); Immature Granulocytes # (auto) 0.07 K/uL (0.01-0.20); Immature Granulocytes % (auto) 0.6 %; Lymphocytes # (auto) 1.25 K/uL (1.2-3.4); Lymphocytes % (auto) 10.6 %; Mean Corpuscular Hemoglobin 28.6 pg (25.0-34.0); Mean Corpuscular Hgb Conc 34.3 g/dL (32.0-36.0); Mean Corpuscular Volume 83.5 fL (80.0-100.0); Mean Platelet Volume 9.6 fL (9.4-12.4); Monocytes # (auto) 0.65 K/uL (0.11-0.59); Monocytes % (auto) 5.5 %; Neutrophils # (auto) 9.78 K/uL (1.40-6.50); Neutrophils % (auto) 83.2 %; Platelet Count 237 K/uL (130-400); RDW Coefficient of Variation 13.5 % (11.5-14.5); RDW Standard Deviation 40.9 fL (36.4-46.3); White Blood Count 11.76 K/ul (4.8-10.8)
[2022-12-23] MEDS: VALSARTAN/SACUBITRIL 51/49 MG TAB PO SCH ×2 (07:45→21:48)
[2022-12-23 07:56] LABS: BUN Creatinine Ratio 14.9 (10-20); Calcium 8.3 mg/dl (8.6-10.3); Creatinine Clr Calc Pharmacy 114.1 ml/min; Est GFR (African American) 102.4 ml/min; Est GFR (Non-African American) 88.4 ml/min
[2022-12-23] MEDS: ACETAMINOPHEN 500 MG TAB PO PRN (11:36)
--- NOTE | 2022-12-23 12:23 | Orthopedic Progress Note ---
Date of Service December 23, 2022 Assessment & Plan (1) Neurogenic claudication due to lumbar spinal stenosis: Plan: This time we will continue physical therapy monitor his ADA output hopefully discharge home in next few days. Admission and Anticipated Discharge Date Admission Date: December 22, 2022 Subjective Back pain controlled leg pain improved Physical Exam Physical Exam: Patient is up and ambulating halls. Is good strength testing. Results & Data Vital Signs (Past 12 Hours) Vital Signs Temp Pulse Resp BP BP Pulse Ox O2 Del Method 12/23/22 11:25 65 18 122/70 93 Room Air 12/23/22 11:11 37.2 C 72 16 117/70 94 Room Air 12/23/22 07:26 36.7 C 74 18 106/64 96 Room Air 12/23/22 04:23 37.0 C 61 16 97/61 L 95 Room Air
--- NOTE | 2022-12-23 14:43 | Hospitalist Progress Note ---
Date of Service December 23, 2022 Assessment & Plan (1) Postoperative pain after spinal surgery: (2) CHF (congestive heart failure): (3) CAD (coronary artery disease): (4) LBBB (left bundle branch block): (5) HTN (hypertension): (6) Hx of cardiac pacemaker: (7) GERD (gastroesophageal reflux disease): (8) Anxiety: Plan This is a 57-year-old male with PMH of systolic CHF, CAD, hypertension, status post cardiac pacemaker placement, history of left bundle branch block, mood disorder and other medical problems listed below who is POD#0 s/premoval of posterior instrumentation L4-L5 L5-S1, exploration of fusion L4-L5 L5-S1 #3 revision decompression L4-L5 L5-S1 including medial facetectomies and placement posterior instrumentation L4-L5 L5-S1. S/p spinal surgery POD#1 s/p removal of posterior instrumentation L4-L5 L5-S1, exploration of fusion L4-L5 L5-S1,revision decompression L4-L5 L5-S1 and placement posterior instrumentation L4-L5 L5-S1 by Dr. Bell Per ortho for pain control, wound care, anticoagulation and activities Hemoglobin down trended from 14-10.6. Continue to monitor. continue incentive spirometry, PT/OT when appropriate Headache (? Sinusitis) reports frontal headache. will start trial of antibiotics ( Keflex) Chronic systolic CHF, h/o dilated cardiomyopathy Follows with Aliya De Santiago, [facility] Cardiology Most recent echo with EF 45-50% Continue home dose Torsemide 60mg HS, Coreg, Entresto CAD Stable. Continue statin, coreg S/p pacemaker placement HTN Normotensive. Continue Entresto, Torsemide with hold parameters Mood disorder Continue home PRN ativan, Caution while receiving narcotics post-operatively Requested medication for sleep. Ambien ordered as needed at night. PCP: Debbie Dispo: Per primary service Please note the above document was generated using voice recognition software. It may contain grammatical, syntax or spelling errors. Any formal questions or concerns about the content, text or information contained within the body of this dictation should be directly addressed to the provider for clarification Admission and Anticipated Discharge Date Admission Date: December 22, 2022 Subjective Patient seen and examined at bedside. He reports ear fullness. Reports that he has not been able to sleep for the past 2 days. Pain is well controlled. Review of Systems Review of Systems: All systems reviewed & are unremarkable except as noted in Subjective Physical Exam Physical Exam: General Appearance:WD/WN, vitals as above, NAD, sitting up in bed, pleasant, conversing easily Head: normocephalic, atraumatic Eyes:normal inspection, PERRL, conjunctivae normal ENT: oropharynx normal. Otoscopy done; no wax. Tympanic membrane intact. Neck: normal visual inspection, trachea midline, no thyromegaly Respiratory:normal respiratory effort, lungs clear to auscultation, no wheeze, rales, rhonchi. No accessory muscle use Cardiovascular: regular rate, rhythm, no murmur, normal peripheral pulses, no BLE edema. Vessels: no JVD Abdomen/GI: normal bowel sounds, soft, nontender Extremities/Musculoskeletal:+Spinal dressing c/d/i, ADA drain visualized. No cyanosis or clubbing, extremities motor strength 5/5, +BLE shala hose Neurologic: PERRL, no face palsy, no dysarthria, CN's II-XI intact bilaterally and moves all extremities Psychiatric:A+Ox3, euthymic affect Skin: no rashes, normal color, warm/dry Results & Data Results & Data Vital Signs (Past 12 Hours) Vital Signs Temp Pulse Resp BP BP Pulse Ox O2 Del Method 12/23/22 11:25 65 18 122/70 93 Room Air 12/23/22 11:11 37.2 C 72 16 117/70 94 Room Air 12/23/22 07:26 36.7 C 74 18 106/64 96 Room Air 12/23/22 04:23 37.0 C 61 16 97/61 L 95 Room Air Laboratory Results Laboratory Results WBC 11.76 K/ul (4.8-10.8) H 12/23/22 07:15 RBC 3.70 M/uL (4.70-6.10) L 12/23/22 07:15 Hgb 10.6 g/dl (14.0-18.0) L 12/23/22 07:15 Hct 30.9 % (42.0-52.0) L 12/23/22 07:15 MCV 83.5 fL (80.0-100.0) 12/23/22 07:15 MCH 28.6 pg (25.0-34.0) 12/23/22 07:15 MCHC 34.3 g/dL (32.0-36.0) 12/23/22 07:15 RDW Std Deviation 40.9 fL (36.4-46.3) 12/23/22 07:15 RDW Coeff of Jenna 13.5 % (11.5-14.5) 12/23/22 07:15 Plt Count 237 K/uL (130-400) 12/23/22 07:15 MPV 9.6 fL (9.4-12.4) 12/23/22 07:15 Immature Gran % (Auto) 0.6 % 12/23/22 07:15 Neut % (Auto) 83.2 % 12/23/22 07:15 Lymph % (Auto) 10.6 % 12/23/22 07:15 [place] % (Auto) 5.5 % 12/23/22 07:15 Eos % (Auto) 0.0 % 12/23/22 07:15 Baso % (Auto) 0.1 % 12/23/22 07:15 Neut # (Auto) 9.78 K/uL (1.40-6.50) H 12/23/22 07:15 Lymph # (Auto) 1.25 K/uL (1.2-3.4) 12/23/22 07:15 [place] # (Auto) 0.65 K/uL (0.11-0.59) H 12/23/22 07:15 Eos # (Auto) 0.00 K/uL (0-0.50) 12/23/22 07:15 Baso # (Auto) 0.01 K/uL (0-0.2) 12/23/22 07:15 Immature Gran # (Auto) 0.07 K/uL (0.01-0.20) 12/23/22 07:15 Sodium 139 mmol/L (136-145) 12/23/22 07:15 Potassium 3.0 mmol/L (3.5-5.1) L 12/23/22 07:15 Chloride 96 mmol/L (98-107) L 12/23/22 07:15 Carbon Dioxide 33 mmol/L (21-32) H 12/23/22 07:15 Anion Gap 10 (3-11) 12/23/22 07:15 BUN 14 mg/dl (6-23) 12/23/22 07:15 Creatinine 0.94 mg/dl (0.6-1.4) 12/23/22 07:15 Est Cr Clr Drug Dosing 114.1 ml/min 12/23/22 07:15 Est GFR ( Amer) 102.4 ml/min 12/23/22 07:15 Est GFR (Non-Af Amer) 88.4 ml/min 12/23/22 07:15 BUN/Creatinine Ratio 14.9 (10-20) 12/23/22 07:15 Glucose 176 mg/dl (70-99(Fasting)) H 12/23/22 07:15 Calcium 8.3 mg/dl (8.6-10.3) L 12/23/22 07:15 SARS-CoV-2, RNA, NAAT NEGATIVE (NEGATIVE) 12/22/22 Unknown Blood Type A Negative 12/22/22 10:44 Antibody Screen NEGATIVE 12/22/22 10:44 Crossmatch See Detail 12/22/22 10:44 Impressions Lumbar Spine X-Ray 12/22/22 12:25 FL lumbar spine 2-3V CLINICAL HISTORY: L4-S1 DFI COMPARISON STUDY: None. FLUOROSCOPY TIME: 9.9 seconds. FLUOROSCOPY IMAGES: 2 Ka,r: 9.2 mGy FINDINGS: Posterior decompression and fusion from L4 through S1 with pedicle screws and rods. The hardware appears intact. IMPRESSION: Fluoroscopic assistance as above. ACT 112: Negative or not required by law. Electronically signed by: Sebastian Sanabria M.D. 12/23/2022 6:35 AM
[2022-12-23] MEDS ORDERED: ZOLPIDEM TARTRATE 5 MG TAB PO PRN (14:45)
[2022-12-23] MEDS: cephALEXin 500 MG CAP PO SCH ×2 (16:29→21:42)
[2022-12-23] MEDS: TORSEMIDE 20 MG TAB PO SCH (21:41)
[2022-12-23] MEDS: LORazepam 0.5 MG TAB PO PRN (21:41)
[2022-12-23] MEDS: ATORVASTATIN 40 MG TAB PO SCH (21:41)
[2022-12-23] MEDS: DOCUSATE SODIUM/SENNA 50/8.6MG TAB PO SCH (21:48)
[2022-12-24] MEDS: POLYETHYLENE (MIRALAX) 17 GM PACK PO SCH ×2 (05:16→12:41)
[2022-12-24] MEDS: oxyCODONE HCL IR 5 MG TAB (IMMEDIATE RELEASE) PO PRN ×3 (07:49→19:53)
[2022-12-24] MEDS: carvediloL 25 MG TAB PO SCH ×2 (08:49→19:54)
[2022-12-24] MEDS: dexAMETHasone 6 MG in SYRINGE 0 ML IV SCH (08:49)
[2022-12-24] MEDS: cephALEXin 500 MG CAP PO SCH ×4 (08:49→19:54)
[2022-12-24] MEDS: VALSARTAN/SACUBITRIL 51/49 MG TAB PO SCH ×3 (08:50→19:57)
[2022-12-24] MEDS: POTASSIUM CHLORIDE CRTAB 20 MEQ TABCR PO SCH (08:51)
[2022-12-24] MEDS: PANTOprazole 40 MG TAB PO SCH (08:51)
[2022-12-24] MEDS: MULTIVITAMIN TAB PO SCH (08:51)
[2022-12-24] MEDS: LORazepam 0.5 MG TAB PO PRN ×3 (09:00→21:03)
--- NOTE | 2022-12-24 09:50 | Orthopedic Progress Note ---
Date of Service December 24, 2022 Assessment & Plan (1) Neurogenic claudication due to lumbar spinal stenosis: Plan: This time continue physical therapy monitor his ADA output anticipate discharge home tomorrow. Admission and Anticipated Discharge Date Admission Date: December 22, 2022 Subjective Patient's back pain is controlled leg pain markedly improved Physical Exam Physical Exam: Patient is ambulating the halls. Is comfortable. Good strength testing. Results & Data Vital Signs (Past 12 Hours) Vital Signs Temp Pulse Resp BP Pulse Ox O2 Del Method 12/24/22 08:55 81 109/69 95 Room Air 12/24/22 07:59 36.6 C 68 18 116/74 96 Room Air
[2022-12-24] MEDS ORDERED: ACETAMINOPHEN 1,000 MG/100 ML VIAL IV STA ×2 (10:34→20:17)
--- NOTE | 2022-12-24 12:04 | Hospitalist Progress Note ---
Date of Service December 24, 2022 Assessment & Plan (1) Postoperative pain after spinal surgery: (2) CHF (congestive heart failure): (3) CAD (coronary artery disease): (4) LBBB (left bundle branch block): (5) HTN (hypertension): (6) Hx of cardiac pacemaker: (7) GERD (gastroesophageal reflux disease): (8) Anxiety: Plan This is a 57-year-old male with PMH of systolic CHF, CAD, hypertension, status post cardiac pacemaker placement, history of left bundle branch block, mood disorder and other medical problems listed below who is POD#0 s/premoval of posterior instrumentation L4-L5 L5-S1, exploration of fusion L4-L5 L5-S1 #3 revision decompression L4-L5 L5-S1 including medial facetectomies and placement posterior instrumentation L4-L5 L5-S1. S/p spinal surgery POD#2 s/p removal of posterior instrumentation L4-L5 L5-S1, exploration of fusion L4-L5 L5-S1,revision decompression L4-L5 L5-S1 and placement posterior instrumentation L4-L5 L5-S1 by Dr. Bell Per ortho for pain control, wound care, anticoagulation and activities Hemoglobin down trended from 14-10.6. Continue to monitor. continue incentive spirometry, PT/OT when appropriate Headache (? Sinusitis) reports frontal headache. will start trial of antibiotics ( Keflex). Treat for 5 days. Chronic systolic CHF, h/o dilated cardiomyopathy Follows with Aliya De Santiago, [facility] Cardiology Most recent echo with EF 45-50% Continue home dose Torsemide 60mg HS, Coreg, Entresto CAD Stable. Continue statin, coreg S/p pacemaker placement HTN Normotensive. Continue Entresto, Torsemide with hold parameters Mood disorder Continue home PRN ativan, Caution while receiving narcotics post-operatively Requested medication for sleep. Ambien ordered as needed at night. PCP: Debbie Dispo: Per primary service Please note the above document was generated using voice recognition software. It may contain grammatical, syntax or spelling errors. Any formal questions or concerns about the content, text or information contained within the body of this dictation should be directly addressed to the provider for clarification Admission and Anticipated Discharge Date Admission Date: December 22, 2022 Subjective Patient seen and examined. Patient is currently able to walk on the hallways with a walker without any pain or difficulty. Reports frontal headache which has slightly improved. Review of Systems Review of Systems: All systems reviewed & are unremarkable except as noted in Subjective Physical Exam Physical Exam: General Appearance:WD/WN, vitals as above, NAD, sitting up in bed, pleasant, conversing easily Head: normocephalic, atraumatic Eyes:normal inspection, PERRL, conjunctivae normal ENT: oropharynx normal. Otoscopy done; no wax. Tympanic membrane intact. Neck: normal visual inspection, trachea midline, no thyromegaly Respiratory:normal respiratory effort, lungs clear to auscultation, no wheeze, rales, rhonchi. No accessory muscle use Cardiovascular: regular rate, rhythm, no murmur, normal peripheral pulses, no BLE edema. Vessels: no JVD Abdomen/GI: normal bowel sounds, soft, nontender Extremities/Musculoskeletal:+Spinal dressing c/d/i, ADA drain visualized. No cyanosis or clubbing, extremities motor strength 5/5, +BLE shala hose Neurologic: PERRL, no face palsy, no dysarthria, CN's II-XI intact bilaterally and moves all extremities Psychiatric:A+Ox3, euthymic affect Skin: no rashes, normal color, warm/dry Results & Data Results & Data Vital Signs (Past 12 Hours) Vital Signs Temp Pulse Resp BP Pulse Ox O2 Del Method 12/24/22 08:55 81 109/69 95 Room Air 12/24/22 07:59 36.6 C 68 18 116/74 96 Room Air Laboratory Results Laboratory Results WBC 11.76 K/ul (4.8-10.8) H 12/23/22 07:15 RBC 3.70 M/uL (4.70-6.10) L 12/23/22 07:15 Hgb 10.6 g/dl (14.0-18.0) L 12/23/22 07:15 Hct 30.9 % (42.0-52.0) L 12/23/22 07:15 MCV 83.5 fL (80.0-100.0) 12/23/22 07:15 MCH 28.6 pg (25.0-34.0) 12/23/22 07:15 MCHC 34.3 g/dL (32.0-36.0) 12/23/22 07:15 RDW Std Deviation 40.9 fL (36.4-46.3) 12/23/22 07:15 RDW Coeff of Jenna 13.5 % (11.5-14.5) 12/23/22 07:15 Plt Count 237 K/uL (130-400) 12/23/22 07:15 MPV 9.6 fL (9.4-12.4) 12/23/22 07:15 Immature Gran % (Auto) 0.6 % 12/23/22 07:15 Neut % (Auto) 83.2 % 12/23/22 07:15 Lymph % (Auto) 10.6 % 12/23/22 07:15 [place] % (Auto) 5.5 % 12/23/22 07:15 Eos % (Auto) 0.0 % 12/23/22 07:15 Baso % (Auto) 0.1 % 12/23/22 07:15 Neut # (Auto) 9.78 K/uL (1.40-6.50) H 12/23/22 07:15 Lymph # (Auto) 1.25 K/uL (1.2-3.4) 12/23/22 07:15 [place] # (Auto) 0.65 K/uL (0.11-0.59) H 12/23/22 07:15 Eos # (Auto) 0.00 K/uL (0-0.50) 12/23/22 07:15 Baso # (Auto) 0.01 K/uL (0-0.2) 12/23/22 07:15 Immature Gran # (Auto) 0.07 K/uL (0.01-0.20) 12/23/22 07:15 Sodium 139 mmol/L (136-145) 12/23/22 07:15 Potassium 3.0 mmol/L (3.5-5.1) L 12/23/22 07:15 Chloride 96 mmol/L (98-107) L 12/23/22 07:15 Carbon Dioxide 33 mmol/L (21-32) H 12/23/22 07:15 Anion Gap 10 (3-11) 12/23/22 07:15 BUN 14 mg/dl (6-23) 12/23/22 07:15 Creatinine 0.94 mg/dl (0.6-1.4) 12/23/22 07:15 Est Cr Clr Drug Dosing 114.1 ml/min 12/23/22 07:15 Est GFR ( Amer) 102.4 ml/min 12/23/22 07:15 Est GFR (Non-Af Amer) 88.4 ml/min 12/23/22 07:15 BUN/Creatinine Ratio 14.9 (10-20) 12/23/22 07:15 Glucose 176 mg/dl (70-99(Fasting)) H 12/23/22 07:15 Calcium 8.3 mg/dl (8.6-10.3) L 12/23/22 07:15 SARS-CoV-2, RNA, NAAT NEGATIVE (NEGATIVE) 12/22/22 Unknown Blood Type A Negative 12/22/22 10:44 Antibody Screen NEGATIVE 12/22/22 10:44 Crossmatch See Detail 12/22/22 10:44 Impressions Lumbar Spine X-Ray 12/22/22 12:25 FL lumbar spine 2-3V CLINICAL HISTORY: L4-S1 DFI COMPARISON STUDY: None. FLUOROSCOPY TIME: 9.9 seconds. FLUOROSCOPY IMAGES: 2 Ka,r: 9.2 mGy FINDINGS: Posterior decompression and fusion from L4 through S1 with pedicle screws and rods. The hardware appears intact. IMPRESSION: Fluoroscopic assistance as above. ACT 112: Negative or not required by law. Electronically signed by: Sebastian Sanabria M.D. 12/23/2022 6:35 AM
[2022-12-24] MEDS: TORSEMIDE 20 MG TAB PO SCH (19:57)
[2022-12-24] MEDS: DOCUSATE SODIUM/SENNA 50/8.6MG TAB PO SCH (19:58)
[2022-12-24] MEDS: ATORVASTATIN 40 MG TAB PO SCH (19:58)
[2022-12-24] MEDS ORDERED: traZODone HCL 100 MG TAB PO PRN (20:10)
[2022-12-25] MEDS: oxyCODONE HCL IR 5 MG TAB (IMMEDIATE RELEASE) PO PRN ×3 (01:31→13:31)
[2022-12-25] MEDS: ACETAMINOPHEN 500 MG TAB PO PRN (08:12)
[2022-12-25] MEDS: PANTOprazole 40 MG TAB PO SCH (08:13)
[2022-12-25] MEDS: dexAMETHasone 6 MG in SYRINGE 0 ML IV SCH (08:13)
[2022-12-25] MEDS: POTASSIUM CHLORIDE CRTAB 20 MEQ TABCR PO SCH (08:13)
[2022-12-25] MEDS: MULTIVITAMIN TAB PO SCH (08:14)
[2022-12-25] MEDS: cephALEXin 500 MG CAP PO SCH ×2 (08:14→13:31)
[2022-12-25] MEDS: VALSARTAN/SACUBITRIL 51/49 MG TAB PO SCH (08:19)
[2022-12-25] MEDS: carvediloL 25 MG TAB PO SCH (08:19)
--- NOTE | 2022-12-25 10:02 | Discharge Summary ---
Date of Service December 25, 2022 Admission HPI Per Admitting Provider This is a 57-year-old male presents for persistent back and leg pain status post lumbar decompression fusion a year ago. After failing course of nonoperative care is here for revision surgery. Principal Diagnosis Lumbar spinal stenosis with radiculopathy and nonunion of fusion Discharge Data Allergies Allergy/AdvReac Type Severity Reaction Status Date / Time bupropion [From Wellbutrin] AdvReac Intermediate Dizziness Verified 12/22/22 10:54 gabapentin [From Neurontin] AdvReac Intermediate Nausea Verified 12/22/22 10:54 Consultations 12/22/22 17:03 Consult Hospitalist Routine Procedures Performed Operation Date: 12/22/22 12:25 Actual Procedures p L4-S1 Revision Decompression and Fusion with interbody at L4-L5, Spinal Cord Monitoring(Not Applicable) - Bobby Bell DO Ordered Studies 12/22/22 12:25 FL lumbar spine 2-3V Routine Hospital Course (1) Neurogenic claudication due to lumbar spinal stenosis: Patient underwent revision lumbar decompression fusion tolerated this well was taken to orthopedic for postoperative. Postop day 1 is up and ambulating breast postop day #2 on postop day #3 pain was controlled extra strength testing ADA drain decreasing appropriately. Subsequent discharge home. Discharge orders and instructions found in chart for further review. Total Time Total Time Spent Total Time Spent (In Minutes): 20 minutes Discharge Plan Discharge Items Patient Disposition: Home - Self-Care Reason For Visit: Radiculopathy, Lumbar Region Discharge Diagnosis: Lumbar spinal stenosis with radiculopathy Activity: As commented below Non-emergency contact: Primary Care Provider Call non-emergency contact if: you have any medication questions Follow-up/Referrals: Luis Bedolla D.O. [Primary Care Provider] - Diet: Regular Addtl Attending Provider Instructions: ACTIVITY RECOMMENDATIONS: SELF CARE INSTRUCTIONS AFTER THORACIC/LUMBAR FUSIONS 1. You may walk to your tolerance. It is good exercise for your legs and back. Expect some back and intermittent leg aches and pains. 2. You may perform "counter-top" level activities (make a sandwich, alisha with a project, etc.). 3. No bending or lifting of more than 10 pounds or back twisting of any nature (roll like a log when turning in bed). 4. You may ride in a car for 20-30 minutes at a time. No driving until after your first visit with your doctor. 5. Frequent changes of position and restricting sitting to 30 minutes at a time will help limit the amount of back spasms and stiffness you may experience. 6. You may discontinue the use of ambulatory aids (cane, crutches, etc.) once your strength and confidence allow. 7. You may mud analysis well logging captain the shower and let water strike your incision when you arrive home at least once daily. Do not take a tub bath, sit in a hot tub or go into a swimming pool until after your first recheck in the office. SPECIAL CARE INSTRUCTIONS: VERY IMPORTANT TO READ AND REVIEW A. Your surgical incision has been closed with a cosmetic suture under the skin that will dissolve in about 6 weeks. In 14 days, you can use a pair of clean scissors and cut the suture that is left outside of the skin at the ends of your incision. 1. The small skin tapes can be removed 7 days after surgery if they have not fallen off by that point. 2. You may keep the wound open to air as much as possible to promote healing after post-op day number 5 unless told otherwise by your doctor. 3. If you think the wound looks like it is becoming infected (redness or worsening drainage) and/or you are experiencing fever, chill or worsening back pain and muscle spasms, contact the office so that we may evaluate you as soon as possible. B. Complications are uncommon, but please contact us if you have any signs or symptoms of: 1. wound infection (fever higher than 102.5 degrees F, redness, separation of wound, drainage, or increasing pain from the incision) 2. blood clots in legs (pain, swelling, redness and warmth in legs) 3. urinary tract infection (fever higher than 102.5 degrees F, burning upon urination or increased frequency of urination) 4. nerve problems (inability to walk on your toes or heels, numbness, loss of bowel or bladder control) 5. any other symptoms that concern you C. Please call the office at if you have any concerns or questions about your operation or recovery. D. No smoking! Smoking drastically decreases the chance of a solid fusion. E. Do not take any anti-inflammatory medications (Indocin, Advil, Motrin, Aspirin, Naprosyn, etc.) as these may inhibit the chance of a solid fusion. Tylenol is okay to take for pain. MANAGING PAIN AFTER SPINAL SURGERY 1. Narcotic medication is intended for short-term use and will be provided for surgical pain. Surgical pain usually lasts for a period of 4-6 weeks. Narcotic medication includes Percocet, Vicodin, Darvocet, Tylenol #3 or Lortab. 2. Longer-term pain is more appropriately treated with non-narcotic medication such as Tylenol ES. 3. Muscle spasm is not appropriately treated with narcotics. Muscle relaxers such as Soma, Flexeril or Skelaxin can be used along with Tylenol ES. 4. Remember that we all live with some "aches and pains". This is not unusual or uncommon after an injury or as we get older. a. Back pain is expected and may include muscle spasms for 4 to 6 weeks after surgery. The pain should gradually improve. If the pain worsens for no apparent reason, please contact the office. b. Intermittent leg pain may also be experienced and should not be concerned about unless it worsens for no apparent reason. If so, please contact the office. 5. We will provide appropriate medication within the normal guidelines of their prescribed use. We will also be very cautious and aware of potential abuse and extended duration of patients' medication needs. a. Pain medications are for your comfort and to assist with sleep and rest so that the tissue can heal. They are not provided in order to return to normal activity and should not be used through the day. To do so or worsening pain at night can result from ongoing tissue damage and development of tolerance to the prescribed medicine. 6. Please allow 2-3 days to process refills. Prescriptions will not be mailed but must be picked up at the office. FOLLOW UP VISIT: Keep your scheduled follow-up appointment. Any questions, please call the office at . Pending Studies at Discharge: No Stand-Alone Forms: My [employer], Smoking Cessation Medications and DC Order Prescriptions: New oxycodone 5 mg tablet 5 mg PO Q6H PRN (Reason: pain) Qty: 30 0RF Continued atorvastatin [Lipitor] 40 mg Tablet 80 mg PO HS carvedilol [Coreg] 12.5 mg Tablet 25 mg PO BID omega-3 fatty acids Capsule 2,400 mg PO HS multivitamin with iron-mineral Tablet 1 tab PO QAM oxycodone-acetaminophen [Percocet] 7.5-325 mg Tablet 1 tab PO Q4H PRN (Reason: Pain) Rx Instructions: every 4-6 hours as needed sildenafil [Viagra] 100 mg Tablet 50 mg PO DAILY PRN (Reason: Erectile Dysfunction) lorazepam 0.5 mg Tablet 0.5 mg PO TID PRN (Reason: Anxiety) trazodone 100 mg Tablet 100 mg PO HS PRN (Reason: Anxiety) omeprazole 20 mg Capsule,Delayed Release(Dr/Ec) 20 mg PO QAM potassium chloride 20 mEq Tablet Extended Release 20 meq PO QAM Entresto 49-51 mg Tablet 1 tab PO BID torsemide 20 mg Tablet 60 mg PO QPM flaxseed oil 1,000 mg Capsule 1,000 mg PO HS Rx Instructions: administer with a meal turmeric 400 mg Capsule 400 mg PO HS Discharge Orders: Discharge Order (Routine); Ordered 12/25/22 Ordered By: Bobby Bell Admission Data Admit Date/Time: 12/22/22 15:44 Attending Provider: Bobby Bell Admit Provider: Bobby Bell Primary Care Provider: Luis Bedolla Other Providers: Edna Carter ; Sylvester Velazquez
[2022-12-25] MEDS: LORazepam 0.5 MG TAB PO PRN (11:31)
[2022-12-25 11:44] VITALS: BP 114/68; PULSE 64; TEMP 98.2; O2SAT 94
--- NOTE | 2022-12-25 15:49 | Hospitalist Progress Note ---
Date of Service December 25, 2022 Assessment & Plan (1) Postoperative pain after spinal surgery: (2) CHF (congestive heart failure): (3) CAD (coronary artery disease): (4) LBBB (left bundle branch block): (5) HTN (hypertension): (6) Hx of cardiac pacemaker: (7) GERD (gastroesophageal reflux disease): (8) Anxiety: Plan This is a 57-year-old male with PMH of systolic CHF, CAD, hypertension, status post cardiac pacemaker placement, history of left bundle branch block, mood disorder and other medical problems listed below who is POD#0 s/premoval of posterior instrumentation L4-L5 L5-S1, exploration of fusion L4-L5 L5-S1 #3 revision decompression L4-L5 L5-S1 including medial facetectomies and placement posterior instrumentation L4-L5 L5-S1. S/p spinal surgery Acute blood loss anemia. POD#3 s/p removal of posterior instrumentation L4-L5 L5-S1, exploration of fusion L4-L5 L5-S1,revision decompression L4-L5 L5-S1 and placement posterior instrumentation L4-L5 L5-S1 by Dr. Bell Per ortho for pain control, wound care, anticoagulation and activities Hemoglobin down trended from 14-10.6. Continue to monitor. continue incentive spirometry, PT/OT when appropriate Headache (? Sinusitis) reports frontal headache. will start trial of antibiotics ( Keflex). Chronic systolic CHF, h/o dilated cardiomyopathy Follows with Aliya De Santiago, [facility] Cardiology Most recent echo with EF 45-50% Continue home dose Torsemide 60mg HS, Coreg, Entresto Follow-up with cardiology as outpatient. CAD Stable. Continue statin, coreg S/p pacemaker placement HTN Normotensive. Continue Entresto, Torsemide with hold parameters Mood disorder Continue home PRN ativan, Caution while receiving narcotics post-operatively Requested medication for sleep. Ambien ordered as needed at night. PCP: Debbie Dispo: Per primary service Please note the above document was generated using voice recognition software. It may contain grammatical, syntax or spelling errors. Any formal questions or concerns about the content, text or information contained within the body of this dictation should be directly addressed to the provider for clarification Admission and Anticipated Discharge Date Admission Date: December 22, 2022 Subjective Patient seen and examined at bedside. Is ambulating without difficulty. Comfortable. Review of Systems Review of Systems: All systems reviewed & are unremarkable except as noted in Subjective Physical Exam Physical Exam: General Appearance:WD/WN, vitals as above, NAD, sitting up in bed, pleasant, conversing easily Head: normocephalic, atraumatic Eyes:normal inspection, PERRL, conjunctivae normal ENT: oropharynx normal. Otoscopy done; no wax. Tympanic membrane intact. Neck: normal visual inspection, trachea midline, no thyromegaly Respiratory:normal respiratory effort, lungs clear to auscultation, no wheeze, rales, rhonchi. No accessory muscle use Cardiovascular: regular rate, rhythm, no murmur, normal peripheral pulses, no BLE edema. Vessels: no JVD Abdomen/GI: normal bowel sounds, soft, nontender Extremities/Musculoskeletal:+Spinal dressing c/d/i, ADA drain visualized. No cyanosis or clubbing, extremities motor strength 5/5, +BLE shala hose Neurologic: PERRL, no face palsy, no dysarthria, CN's II-XI intact bilaterally and moves all extremities Psychiatric:A+Ox3, euthymic affect Skin: no rashes, normal color, warm/dry Results & Data Results & Data Vital Signs (Past 12 Hours) Vital Signs Temp Pulse Pulse Resp BP Pulse Ox O2 Del Method 12/25/22 11:42 36.8 C 64 14 114/68 94 Room Air 12/25/22 08:17 54 L 118/79 97 Room Air 12/25/22 07:42 36.4 C L 56 L 14 110/74 97 Room Air Laboratory Results Laboratory Results WBC 11.76 K/ul (4.8-10.8) H 12/23/22 07:15 RBC 3.70 M/uL (4.70-6.10) L 12/23/22 07:15 Hgb 10.6 g/dl (14.0-18.0) L 12/23/22 07:15 Hct 30.9 % (42.0-52.0) L 12/23/22 07:15 MCV 83.5 fL (80.0-100.0) 12/23/22 07:15 MCH 28.6 pg (25.0-34.0) 12/23/22 07:15 MCHC 34.3 g/dL (32.0-36.0) 12/23/22 07:15 RDW Std Deviation 40.9 fL (36.4-46.3) 12/23/22 07:15 RDW Coeff of Jenna 13.5 % (11.5-14.5) 12/23/22 07:15 Plt Count 237 K/uL (130-400) 12/23/22 07:15 MPV 9.6 fL (9.4-12.4) 12/23/22 07:15 Immature Gran % (Auto) 0.6 % 12/23/22 07:15 Neut % (Auto) 83.2 % 12/23/22 07:15 Lymph % (Auto) 10.6 % 12/23/22 07:15 [place] % (Auto) 5.5 % 12/23/22 07:15 Eos % (Auto) 0.0 % 12/23/22 07:15 Baso % (Auto) 0.1 % 12/23/22 07:15 Neut # (Auto) 9.78 K/uL (1.40-6.50) H 12/23/22 07:15 Lymph # (Auto) 1.25 K/uL (1.2-3.4) 12/23/22 07:15 [place] # (Auto) 0.65 K/uL (0.11-0.59) H 12/23/22 07:15 Eos # (Auto) 0.00 K/uL (0-0.50) 12/23/22 07:15 Baso # (Auto) 0.01 K/uL (0-0.2) 12/23/22 07:15 Immature Gran # (Auto) 0.07 K/uL (0.01-0.20) 12/23/22 07:15 Sodium 139 mmol/L (136-145) 12/23/22 07:15 Potassium 3.0 mmol/L (3.5-5.1) L 12/23/22 07:15 Chloride 96 mmol/L (98-107) L 12/23/22 07:15 Carbon Dioxide 33 mmol/L (21-32) H 12/23/22 07:15 Anion Gap 10 (3-11) 12/23/22 07:15 BUN 14 mg/dl (6-23) 12/23/22 07:15 Creatinine 0.94 mg/dl (0.6-1.4) 12/23/22 07:15 Est Cr Clr Drug Dosing 114.1 ml/min 12/23/22 07:15 Est GFR ( Amer) 102.4 ml/min 12/23/22 07:15 Est GFR (Non-Af Amer) 88.4 ml/min 12/23/22 07:15 BUN/Creatinine Ratio 14.9 (10-20) 12/23/22 07:15 Glucose 176 mg/dl (70-99(Fasting)) H 12/23/22 07:15 Calcium 8.3 mg/dl (8.6-10.3) L 12/23/22 07:15 Hepatitis C Ab (EIA) NON-REACTIVE (NON-REACTIVE) 12/23/22 07:15 Hep C Ab Signal/Cutoff <0.02 (<1.00) 12/23/22 07:15 SARS-CoV-2, RNA, NAAT NEGATIVE (NEGATIVE) 12/22/22 Unknown Blood Type A Negative 12/22/22 10:44 Antibody Screen NEGATIVE 12/22/22 10:44 Crossmatch See Detail 12/22/22 10:44 Impressions Lumbar Spine X-Ray 12/22/22 12:25 FL lumbar spine 2-3V CLINICAL HISTORY: L4-S1 DFI COMPARISON STUDY: None. FLUOROSCOPY TIME: 9.9 seconds. FLUOROSCOPY IMAGES: 2 Ka,r: 9.2 mGy FINDINGS: Posterior decompression and fusion from L4 through S1 with pedicle screws and rods. The hardware appears intact. IMPRESSION: Fluoroscopic assistance as above. ACT 112: Negative or not required by law. Electronically signed by: Sebastian Sanabria M.D. 12/23/2022 6:35 AM
== END 2022-12-25 14:20 | disposition home or self-care (01) | DRG 454 ==
LOC: ASU 10:28 → 3E 15:44